=== PATIENT | female | born 2005 | race Hispanic/Latino ===

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

== ENCOUNTER 2023-11-12 10:24 | Day surgery (SDC) | payer BC, OTHER ==
[2023-11-11 10:01] LABS: Specific Gravity > 1.030 (1.005-1.030)
[2023-11-12] MEDS ORDERED: Ringers Lactate 1,000 ML IV ONE (10:39)
[2023-11-12] MEDS ORDERED: CEFAZOLIN SODIUM 1 GM/VIAL ONE (10:39)
[2023-11-12] MEDS ORDERED: BUPIVACAINE 0.25% PF 30 ML VIAL ONE (11:34)
[2023-11-12] MEDS ORDERED: MIDAZOLAM HCL 2 MG/2 ML INJ ONE (11:46)
[2023-11-12] MEDS ORDERED: LIDOCAINE 2% MPF 5 ML VIAL ONE (11:46)
[2023-11-12] MEDS ORDERED: FENTANYL CITR 100 MCG/2 ML ONE (11:46)
[2023-11-12] MEDS ORDERED: propofoL 200 MG/20 ML VIAL IV ONE (11:46)
[2023-11-12] MEDS ORDERED: ONDANSETRON 4 MG/2 ML VIAL ONE (11:46)
[2023-11-12] MEDS ORDERED: dexAMETHasone 10 MG/ML VIAL ONE (12:03)
--- NOTE | 2023-11-12 13:11 | P.OP ---
Preoperative diagnosis: RIGHT Dorsal Ganglion Cyst Postoperative diagnosis: RIGHT Dorsal Ganglion Cyst Primary procedure: Excision of RIGHT Dorsal Ganglion Cyst Anesthesia: GETA Estimated blood loss: <5cc Specimen: Ganglion Cyst Capsule Findings: ~ 1.5cm Scapholunate ganlgion cyst Complications: None Transferred to: Recovery Room Condition: Good
--- NOTE | 2023-11-12 14:41 | OP ---
Date of Procedure: 11/12/2023 Surgeon: Vargas Osei MD, Preoperative Diagnosis: Right dorsal ganglion cyst. Postoperative Diagnosis: Right dorsal ganglion cyst. Procedure Performed: Excision of right dorsal ganglion cyst. Anesthesia: General endotracheal. Estimated Blood Loss: Less than 5 cc. Specimen: Ganglion cyst capsule. Findings: Approximately 1.5 cm scapholunate ganglion cyst. Complication: None. Disposition: Patient was transferred to recovery room in good condition. Procedure In Detail: After informed was obtained, patient was brought to the operating room, prepped in the usual sterile fashion. After adequate anesthesia was achieved, I demarcated an area of the s kin where an obvious dorsal right ganglion cyst was noted along near the scapholunate region of the w rist. I made a linear incision down to subcutaneous tissues using a 15 blade. I dissected down to s ubcutaneous fat to expose the ganglion cyst. I then circumferentially used predominantly blunt disse ction using mosquito hemostats to dissect circumferentially around this ganglion cyst, which was appr oximately 1.5 cm in size. It extended all the way down to the scapholunate ligament region. I then placed a 3-0 Vicryl suture. After this was completely dissected free from the joint capsule on the n ronaldo of the cyst and ligated at this point, the cyst was intact until the ligation portion of the proc edure, which then allowed for spillage of the viscous fluid which was suctioned out at this point. T he capsule was sent off for pathologic examination. The area was copiously irrigated. No hemostatic measures required. No injury to the extensor compartment tendons or ligaments was performed as they were protected throughout. The area was copiously irrigated. Minimal hemostasis required at the le lashawn of the skin. I then performed a layered closure of the deeper planes using interrupted 4-0 Vicry l sutures. The deep dermal plane was then closed using same set 4-0 Vicryl sutures in an interrupted fashion. Skin was closed with a 4-0 Monocryl in a running fashion, Dermabond placed over top. The patient tolerated the procedure well without incident or complication. Transferred to PACU in good c ondition. All counts were correct at the end of the case. TK/MODL Voice ID: [id number] Report ID: [id number]
[2023-11-12 15:21] VITALS: BP 114/77; TEMP 97.8; O2SAT 99
--- NOTE | 2023-11-12 17:26 | EKG ---
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
== END 2023-11-12 15:10 | disposition home or self-care (01) ==
LOC: OR 10:24
PROVIDERS: ATTEND Surgery
PROC: 0JBG0ZZ Excision of Right Lower Arm Subcutaneous Tissue and Fascia, Open Approach (ICD-10-PCS; principal; 2023-11-12 12:00)
DX: M67.431 Ganglion, right wrist (principal)
CPT/HCPCS: 81025; 88304; 93005; J0690; J1100; J2001; J2250; J2405; J2704; J3010; J7120

== ENCOUNTER 2025-07-09 09:13 | Emergency (ER) | payer BC, OTHER ==
--- OUTSIDE RECORDS SUMMARY | 2025-07-09 09:20 | XMS REPORT | Continuity of Care Document ---
Author Name Unknown Address [address] [facility] [place] [address] [facility] [address] [facility] [place] [address] Care Team Providers Care Width Stripper Name Role Phone Volodymyr DIETZ, Trini Sandy Primary Care Physician ISADORA GOODWIN Attending Clinician Unavailab NEL Griffith Attending Clinician Unavailable REYMUNDO THAKKAR Attending Clinician Unavailable LAB47 Attending Clinician Unavailable UDAY KOHLER Attending Clinician Unavailable MD MIKE Attending Clinician UnavailTRINI Stoll Attending Clinician Unava ilable LAB90 Attending Clinician Unavailable SKYLER GRISSOM Attending Clinician Unavailable AUDREY LOPEZ Attending Clinician UnavailAUDREY Welch Attending Clinician UnavailCLARKE Chahal Attending Clinician Unavailable Trini Helm MD Attending Clinician [phone] Payers Payer Name Policy Type Policy Number Effective Date Expirati on Date Source BCBS 2 [id number] 2023 00:00:00 Problems Condition Name Condition Details Condition Category Status Onset Date Resolution Date Last Treatment Date Treating Clinician Comments Source Uses control Uses control Disease Active 07-02 00:00: 00 Shira Seybold - Externa l Encounter for screening for lipoid disorders Encounter for screening for lipoid disorders Disease Active 06-19 00:00: 00 Shira Fragoso - Externa l Hypothyroi dism Hypothyroi dism Disease Active 06-19 00:00: 00 Shira Schaeferold - Externa l Sore throat Sore throat Disease Active 06-19 00:00: 00 Shira Fragoso - Externa l No known active problems No known active problems Disease Shira Fragoso Allergies, Adverse Reactions, Alerts Allergy Name Allergy Type Status Severity Reaction(s) Onset Date Inactive Date Treating Clinician Comments Source NO KNOWN ALLERGIE S Drug Class Active [facility] Social History Social Habit Start Date Stop Date Quantity Comments Source Gender identity 2025-07-07 13:26:02 Identifies as female gender (finding) Shira Fragoso - External Sexual orientation 2025-07-07 13:26:02 Heterosexual (finding) Shira Fragoso - External ASSERTION Not Shira Fragoso - External Exposure to SARS-CoV-2 (event) Not sure Shira Booth chonyoung Alcoholic beverage intake 2025-07-07 00:00:00 2025-07-07 00:00:00 Lifetime non-drinker (finding) Shira Fragoso - External Tobacco use and exposure 2024-05-27 00:00:00 2024-05-27 00:00:00 Smokeless tobacco non-user Shira Fragoso - External Alcohol intake 2023-12-16 00:00:00 2023-12-16 00:00:00 Lifetime non-drinker (finding) Shira Fragoso - External History of Social function 2023-07-07 00:00:00 2023-07-07 00:00:00 Shira Fragoso - External Sex 2021-01-16 17:31:40 2021-01-16 17:31:40 Female (finding) Shira Fragoso - External Sex assigned at 2005 00:00:00 2005 00:00:00 Shira Fragoso - External Smoking Status Start Date Stop Date Source Never smoked tobacco Shira Fragoso - External Medications Ordered Medication Name Filled Medication Name Start Date Stop Date Current Medication? Ordering Clinician Indication Dosage Frequency Signature (SIG) Comments Components Source Sumatriptan Succinate 25 MG oral Tablet Sumatriptan Succinate 25 MG oral Tablet 9-18 00:00: 00 Yes [id number] 25mg Take 1 tablet (25 mg total) by mouth once as needed for migraine (May repeat in 2 hours if unresolved . Do not exceed 200 mg in 24 hours.). Shira gamble Norethin Cesar-Eth Estrad-FE (Lor FE 11/08) 1-20 MG-MCG oral Tablet Norethin Cesar-Eth Estrad-FE (Lor FE 11/08) 1-20 MG-MCG oral Tablet 8-07 00:00: 00 Yes 1{tbl} QD Take 1 tablet by mouth daily. Shira gamble Levothyroxi ne Sodium 25 MCG oral Tablet Levothyroxi ne Sodium 25 MCG oral Tablet 7-31 00:00: 00 Yes [id number] 25ug QD Take 1 tablet (25 mcg total) by mouth daily Please take 30 minutes before breakfast on empty stomach. Shira gamble Clindamycin Phos 1 % apply externally Gel Clindamycin Phos 1 % apply externally Gel 7-17 00:00: 00 05-30 00:00 :00 No Shira gamble Lor FE /20 1-20 MG-MCG oral Tablet Lor FE 20 1-20 MG-MCG oral Tablet 7-07 00:00: 00 05-26 00:00 :00 No 1{tbl} QD TAKE 1 TABLET BY MOUTH DAILY Shira gamble Escitalopra m Oxalate 10 MG oral Tablet Escitalopra m Oxalate 10 MG oral Tablet 4-11 00:00: 00 Yes [id number] 10mg QD Take 1 tablet (10 mg total) by mouth daily. Shira gamble Norethin Cesar-Eth Estrad-FE (Loestrin Fe 11/08) 1-20 MG-MCG oral Tablet 8-08 00:00: 00 Yes 1{tbl} QD Take 1 tablet by mouth daily. Shira gamble Escitalopra m Oxalate 10 MG oral Tablet 8 00:00: 00 Yes [id number] 10mg QD Take 1 tablet (10 mg total) by mouth daily. Shira gamble Escitalopra m Oxalate 10 MG oral Tablet 07-12 00:00: 00 Yes [id number] TAKE ONE TABLET BY MOUTH DAILY Shira gamble Levothyroxi ne Sodium 25 MCG oral Tablet 9 00:00: 00 Yes [id number] 25ug QD Take 1 tablet (25 mcg total) by mouth daily. Shira gamble Nitrofurant oin Monohyd Macro 100 MG oral Capsule 06-20 00:00: 00 11-03 00:00 :00 No [id number] 100mg Take 1 capsule (100 mg total) by mouth 2 times daily. Shira gamble Azithromyci n 250 MG oral Tablet 06-19 00:00: 00 06-25 04:59 :00 No [id number] Take 2 tablets by mouth on day 1 then 1 tablet by mouth daily for 4 days thereafter . Please take with food.. Shira gamble Levothyroxi ne Sodium 25 MCG oral Tablet 8 00:00: 00 Yes 25ug Take 1 tablet (25 mcg total) by mouth daily Shira gamble Escitalopra m Oxalate 10 MG oral Tablet 3-13 00:00: 00 Yes [id number] TAKE ONE TABLET BY MOUTH DAILY Shira gamble Amoxicillin -Pot Clavulanate 500-125 MG oral Tablet 5-02 00:00: 00 Yes [id number] 1{tbl} Take 1 tablet by mouth 3 times daily Shira Fragoso Levothyroxi ne Sodium 25 MCG oral Tablet 4-17 00:00: 00 02-18 00:00 :00 No Shira Fragoso Levothyroxi ne Sodium 25 MCG oral Capsule 2020-10 2-30 00:00: 00 Yes 25ug Take 1 capsule (25 mcg total) by mouth daily Shira Fragoso Levothyroxi ne Sodium 25 MCG oral Capsule 2020-10 13:51: 19 Yes 25ug Take 25 mcg by mouth daily Shira Fragoso Escitalopra m Oxalate 10 MG oral Tablet 2020-10 00:00: 00 Yes [id number] 10mg Take 1 tablet (10 mg total) by mouth daily Shira Fragoso Levothyroxi ne Sodium 25 MCG oral Capsule 2020-10 13:24: 33 Yes 25ug Take 25 mcg by mouth daily Shira Fragoso Escitalopra m Oxalate 5 MG oral Tablet 2020-10 00:00: 00 09-06 00:00 :00 No [id number] 5mg Take 1 tablet (5 mg total) by mouth daily Shira Fragoso Levothyroxi ne Sodium 25 MCG oral Capsule 2020-10 08:59: 02 Yes 25ug Take 25 mcg by mouth daily Shira Fragoso Escitalopra m Oxalate 5 MG oral Tablet 2020-10 00:00: 00 Yes [id number] 5mg Take 1 tablet (5 mg total) by mouth daily Shira Fragoso Immunizations Ordered Immunization Name Filled Immunization Name Date Status Comments Source AFLURIA TRIVALENT MDV AFLURIA TRIVALENT MDV 2024-07-02 00:00:00 Completed Shira Evangelista External HPV 9 (Human Papillomavirus) 2020-05-22 00:00:00 Completed Shira Fragoso Meningococcal Vaccine- Conjugate(Menveo) 2020-05-22 00:00:00 Completed Shira Fragoso Bexsero (Meningococcal Group B) 2020-05-22 00:00:00 Completed Shira Fragoso HPV 9 (Human Papillomavirus) 2020-05-22 00:00:00 Completed Shira Fragoso Meningococcal Vaccine- Conjugate(Menveo) 2020-05-22 00:00:00 Completed Shira Fragoso Bexsero (Meningococcal Group B) 2020-05-22 00:00:00 Completed Shira Fragoso HPV 9 (Human Papillomavirus) 2020-05-22 00:00:00 Completed Shira Fragoso - External Meningococcal Vaccine- Conjugate(Menveo) 2020-05-22 00:00:00 Completed Shira Fragoso - External Bexsero (Meningococcal Group B) 2020-05-22 00:00:00 Completed Shira Fragoso - External Meningococcal Acwy, Unspecified 2020-05-22 00:00:00 Completed Shira Schaeferold - External HPV 9 (Human Papillomavirus) 2020-05-22 00:00:00 Completed Shira Schaeferold Meningococcal Vaccine- Conjugate(Menveo) 2020-05-22 00:00:00 Completed Shira Fragoso Bexsero (Meningococcal Group B) 2020-05-22 00:00:00 Completed Shira Fragoso HPV 9 (Human Papillomavirus) HPV 9 (Human Papillomavirus) 2020-05-22 00:00:00 Completed Shira Fragoso - External Meningococcal Vaccine- Conjugate(Menveo) Meningococcal Vaccine- Conjugate(Menveo) 2020-05-22 00:00:00 Completed Shira Fragoso - External Bexsero (Meningococcal Group B) Bexsero (Meningococcal Group B) 2020-05-22 00:00:00 Completed Shira Fragoso - External Meningococcal Acwy, Unspecified Meningococcal Acwy, Unspecified 2020-05-22 00:00:00 Completed Shira Fragoso - External HPV 9 (Human Papillomavirus) 2020-05-22 00:00:00 Completed Shira Fragoso Meningococcal Vaccine- Conjugate(Menveo) 2020-05-22 00:00:00 Completed Shira Fragoso Bexsero (Meningococcal Group B) 2020-05-22 00:00:00 Completed Shira Fragoso HPV 9 (Human Papillomavirus) 2018-12-29 00:00:00 Completed Shira Fragoso HPV 9 (Human Papillomavirus) 2018-12-29 00:00:00 Completed Shira Fragoso HPV 9 (Human Papillomavirus) 2018-12-29 00:00:00 Completed Shira Fragoso - External HPV 9 (Human Papillomavirus) 2018-12-29 00:00:00 Completed Shira Fragoso HPV 9 (Human Papillomavirus) HPV 9 (Human Papillomavirus) 2018-12-29 00:00:00 Completed Shira Boothybold - External HPV 9 (Human Papillomavirus) 2018-12-29 00:00:00 Completed Shira Fragoso HPV 9 (Human Papillomavirus) 2016-05-29 00:00:00 Completed Shira Fragoso Meningococcal Vaccine- Conjugate(Menactra) 2016-05-29 00:00:00 Completed Shira Schaeferold Tdap- (Boostrix, Adacel) 2016-05-29 00:00:00 Completed Shira Schaeferold HPV 9 (Human Papillomavirus) 2016-05-29 00:00:00 Completed Shira Boothybold Meningococcal Vaccine- Conjugate(Menactra) 2016-05-29 00:00:00 Completed Shira Boothybold Tdap- (Boostrix, Adacel) 2016-05-29 00:00:00 Completed Shira Fragoso HPV 9 (Human Papillomavirus) 2016-05-29 00:00:00 Completed Shira Boothybold Meningococcal Vaccine- Conjugate(Menactra) 2016-05-29 00:00:00 Completed Shira Boothybold Tdap- (Boostrix, Adacel) 2016-05-29 00:00:00 Completed Shira Fragoso HPV 9 (Human Papillomavirus) 2016-05-29 00:00:00 Completed Shria Fragoso - External Meningococcal Vaccine- Conjugate(Menactra) 2016-05-29 00:00:00 Completed Shira Fragoso - External Tdap- (Boostrix, Adacel) 2016-05-29 00:00:00 Completed Shira Boothybyoung - External HPV 9 (Human Papillomavirus) 2016-05-29 00:00:00 Completed Shira Boothybold - External Meningococcal Vaccine- Conjugate(Menactra) 2016-05-29 00:00:00 Completed Shira Boothybold - External Tdap- (Boostrix, Adacel) 2016-05-29 00:00:00 Completed Shira Fragoso - External HPV 9 (Human Papillomavirus) 2016-05-29 00:00:00 Completed Shira Seybold Meningococcal Vaccine- Conjugate(Menactra) 2016-05-29 00:00:00 Completed Shira Boothybold Tdap- (Boostrix, Adacel) 2016-05-29 00:00:00 Completed Shira Fragoso HPV 9 (Human Papillomavirus) HPV 9 (Human Papillomavirus) 2016-05-29 00:00:00 Completed Shira Seybold - External Meningococcal Vaccine- Conjugate(Menactra) Meningococcal Vaccine- Conjugate(Menactra) 2016-05-29 00:00:00 Completed Shira Boothybold - External Tdap- (Boostrix, Adacel) Tdap- (Boostrix, Adacel) 2016-05-29 00:00:00 Completed Shira Fragoso - External HPV 9 (Human Papillomavirus) HPV 9 (Human Papillomavirus) 2016-05-29 00:00:00 Completed Shira Fragoso - External Meningococcal Vaccine- Conjugate(Menactra) Meningococcal Vaccine- Conjugate(Menactra) 2016-05-29 00:00:00 Completed Shira Evangelista External Tdap- (Boostrix, Adacel) Tdap- (Boostrix, Adacel) 2016-05-29 00:00:00 Completed Shira Fragoso - External HEPATITIS A- PEDI/ADOL 2013-05-14 00:00:00 Completed Shira Fragoso Varicella Vaccine 2013-05-14 00:00:00 Completed Shira Fragoso HEPATITIS A- PEDI/ADOL 2013-05-14 00:00:00 Completed Shira Fragoso HEPATITIS A- PEDI/ADOL 2013-05-14 00:00:00 Completed Shira Fragoso Varicella Vaccine 2013-05-14 00:00:00 Completed Shira Fragoso HEPATITIS A- PEDI/ADOL 2013-05-14 00:00:00 Completed Shira Fragoso - External Varicella Vaccine 2013-05-14 00:00:00 Completed Shira Fragoso - External Varicella Vaccine 2013-05-14 00:00:00 Completed Shira Fragoso HEPATITIS A- PEDI/ADOL HEPATITIS A- PEDI/ADOL 2013-05-14 00:00:00 Completed Shira Fragoso - External Varicella Vaccine Varicella Vaccine 2013-05-14 00:00:00 Completed Shira Fragoso - External HEPATITIS A- PEDI/ADOL 2013-05-14 00:00:00 Completed Shira Fragoso Varicella Vaccine 2013-05-14 00:00:00 Completed Shira Fragoso HEPATITIS A- PEDI/ADOL 2008-09-08 00:00:00 Completed Shira Fragoso HEPATITIS A- PEDI/ADOL 2008-09-08 00:00:00 Completed Shira Fragoso HEPATITIS A- PEDI/ADOL 2008-09-08 00:00:00 Completed Shira Fragoso HEPATITIS A- PEDI/ADOL 2008-09-08 00:00:00 Completed Shira Fragoso - External HEPATITIS A- PEDI/ADOL HEPATITIS A- PEDI/ADOL 2008-09-08 00:00:00 Completed Shira Schaeferold - External HEPATITIS A- PEDI/ADOL 2008-09-08 00:00:00 Completed Shira Fragoso DTaP Unspecified 2007-12-15 00:00:00 Completed Shira Fragoso HEPATITIS A- PEDI/ADOL 2007-12-15 00:00:00 Completed Shira Fragoso MMR- Measles, Mumps, Rubella 2007-12-15 00:00:00 Completed Shira Fragoso IPV- Inactivated Polio Vaccine 2007-12-15 00:00:00 Completed Shira Fragoso Varicella Vaccine 2007-12-15 00:00:00 Completed Shira Fragoso DTaP Unspecified 2007-12-15 00:00:00 Completed Shira Fragoso DTaP Unspecified 2007-12-15 00:00:00 Completed Shira Fragoso HEPATITIS A- PEDI/ADOL 2007-12-15 00:00:00 Completed Shira Fragoso MMR- Measles, Mumps, Rubella 2007-12-15 00:00:00 Completed Shira Fragoso IPV- Inactivated Polio Vaccine 2007-12-15 00:00:00 Completed Shira Fragoso Varicella Vaccine 2007-12-15 00:00:00 Completed Shira Fragoso HEPATITIS A- PEDI/ADOL 2007-12-15 00:00:00 Completed Shira Fragoso DTaP Unspecified 2007-12-15 00:00:00 Completed Shira Fragoso - External HEPATITIS A- PEDI/ADOL 2007-12-15 00:00:00 Completed hSira Fragoso - External MMR- Measles, Mumps, Rubella 2007-12-15 00:00:00 Completed Shira Fragoso - External IPV- Inactivated Polio Vaccine 2007-12-15 00:00:00 Completed Shira Fragoso - External Varicella Vaccine 2007-12-15 00:00:00 Completed Shira Fragoso - External MMR- Measles, Mumps, Rubella 2007-12-15 00:00:00 Completed Shira Fragoso IPV- Inactivated Polio Vaccine 2007-12-15 00:00:00 Completed Shira Boothybold Varicella Vaccine 2007-12-15 00:00:00 Completed Shira Fragoso DTaP Unspecified DTaP Unspecified 2007-12-15 00:00:00 Completed Shira Fragoso - External HEPATITIS A- PEDI/ADOL HEPATITIS A- PEDI/ADOL 2007-12-15 00:00:00 Completed Shira Fragoso - External MMR- Measles, Mumps, Rubella MMR- Measles, Mumps, Rubella 2007-12-15 00:00:00 Completed Shira Fragoso - External IPV- Inactivated Polio Vaccine IPV- Inactivated Polio Vaccine 2007-12-15 00:00:00 Completed Shira Schaeferold - External Varicella Vaccine Varicella Vaccine 2007-12-15 00:00:00 Completed Shira Fragoso - External DTaP Unspecified 2007-12-15 00:00:00 Completed Shira Fragoso HEPATITIS A- PEDI/ADOL 2007-12-15 00:00:00 Completed Shira Fragoso MMR- Measles, Mumps, Rubella 2007-12-15 00:00:00 Completed Shira Fragoso IPV- Inactivated Polio Vaccine 2007-12-15 00:00:00 Completed Shira Schaeferold Varicella Vaccine 2007-12-15 00:00:00 Completed Shira Fragoso DTaP Unspecified 2005-04-17 00:00:00 Completed Shira Fragoso HIB- Haemophilus Influenzae Type B 2005-04-17 00:00:00 Completed Shira Fragoso MMR- Measles, Mumps, Rubella 2005-04-17 00:00:00 Completed Shira Fragoso Pneumococcal Vaccine, Conjugate 7 2005-04-17 00:00:00 Completed Shira Fragoso DTaP Unspecified 2005-04-17 00:00:00 Completed Shira Schaeferold DTaP Unspecified 2005-04-17 00:00:00 Completed Shira Fragoso HIB- Haemophilus Influenzae Type B 2005-04-17 00:00:00 Completed Shira Fragoso MMR- Measles, Mumps, Rubella 2005-04-17 00:00:00 Completed Shira Fragoso Pneumococcal Vaccine, Conjugate 7 2005-04-17 00:00:00 Completed Shira Fragoso DTaP Unspecified 2005-04-17 00:00:00 Completed Shira Fragoso - External HIB- Haemophilus Influenzae Type B 2005-04-17 00:00:00 Completed Shira Schaeferold - External MMR- Measles, Mumps, Rubella 2005-04-17 00:00:00 Completed Shira Schaeferold - External Pneumococcal Vaccine, Conjugate 7 2005-04-17 00:00:00 Completed Shira Schaeferold - External HIB- Haemophilus Influenzae Type B 2005-04-17 00:00:00 Completed Shira Fragoso MMR- Measles, Mumps, Rubella 2005-04-17 00:00:00 Completed Shira Boothybyoung Pneumococcal Vaccine, Conjugate 7 2005-04-17 00:00:00 Completed Shira Fragoso DTaP Unspecified DTaP Unspecified 2005-04-17 00:00:00 Completed Shira Fragoso - External HIB- Haemophilus Influenzae Type B HIB- Haemophilus Influenzae Type B 2005-04-17 00:00:00 Completed Shira Fragoso - External MMR- Measles, Mumps, Rubella MMR- Measles, Mumps, Rubella 2005-04-17 00:00:00 Completed Shira Fragoso - External Pneumococcal Vaccine, Conjugate 7 Pneumococcal Vaccine, Conjugate 7 2005-04-17 00:00:00 Completed Shira Fragoso - External DTaP Unspecified 2005-04-17 00:00:00 Completed Shira Fragoso HIB- Haemophilus Influenzae Type B 2005-04-17 00:00:00 Completed Shira Fragoso MMR- Measles, Mumps, Rubella 2005-04-17 00:00:00 Completed Shira Fragoso Pneumococcal Vaccine, Conjugate 7 2005-04-17 00:00:00 Completed Shira Fragoso Varicella Vaccine 2004-12-05 00:00:00 Completed Shira Fragoso Hepatitis B, Adolescent Or Pediatric 2004-12-05 00:00:00 Completed Shira Boothybold Pneumococcal Vaccine, Conjugate 7 2004-12-05 00:00:00 Completed Shira Fragoso IPV- Inactivated Polio Vaccine 2004-12-05 00:00:00 Completed Shira Boothybold Varicella Vaccine 2004-12-05 00:00:00 Completed Shira Schaeferold Hepatitis B, Adolescent Or Pediatric 2004-12-05 00:00:00 Completed Shira Boothybold Pneumococcal Vaccine, Conjugate 7 2004-12-05 00:00:00 Completed Shira Fragoso IPV- Inactivated Polio Vaccine 2004-12-05 00:00:00 Completed Shira Boothybold Varicella Vaccine 2004-12-05 00:00:00 Completed Shira Fragoso Hepatitis B, Adolescent Or Pediatric 2004-12-05 00:00:00 Completed Shira Schaeferold Hepatitis B, Adolescent Or Pediatric 2004-12-05 00:00:00 Completed Shira Schaeferold - External Pneumococcal Vaccine, Conjugate 7 2004-12-05 00:00:00 Completed Shira Schaeferold - External IPV- Inactivated Polio Vaccine 2004-12-05 00:00:00 Completed Shira Boothybold - External Varicella Vaccine 2004-12-05 00:00:00 Completed Shira Schaeferold - External Pneumococcal Vaccine, Conjugate 7 2004-12-05 00:00:00 Completed Shira Fragoso IPV- Inactivated Polio Vaccine 2004-12-05 00:00:00 Completed Shira Seybold Varicella Vaccine 2004-12-05 00:00:00 Completed Shira Fragoso Hepatitis B, Adolescent Or Pediatric Hepatitis B, Adolescent Or Pediatric 2004-12-05 00:00:00 Completed Shira Fragoso - External Pneumococcal Vaccine, Conjugate 7 Pneumococcal Vaccine, Conjugate 7 2004-12-05 00:00:00 Completed Shira Fragoso - External IPV- Inactivated Polio Vaccine IPV- Inactivated Polio Vaccine 2004-12-05 00:00:00 Completed Shira Schaeferold - External Varicella Vaccine Varicella Vaccine 2004-12-05 00:00:00 Completed Shira Schaeferold - External Hepatitis B, Adolescent Or Pediatric 2004-12-05 00:00:00 Completed Shira Boothybold Pneumococcal Vaccine, Conjugate 7 2004-12-05 00:00:00 Completed Shira Fragoso IPV- Inactivated Polio Vaccine 2004-12-05 00:00:00 Completed Shira Schaeferold DTaP Unspecified 2004-06-05 00:00:00 Completed Shira Schaeferold HIB- Haemophilus Influenzae Type B 2004-06-05 00:00:00 Completed Shira Boothybold DTaP Unspecified 2004-06-05 00:00:00 Completed Shira ybold Pneumococcal Vaccine, Conjugate 7 2004-06-05 00:00:00 Completed Shira Schaeferold DTaP Unspecified 2004-06-05 00:00:00 Completed Shira Schaeferold HIB- Haemophilus Influenzae Type B 2004-06-05 00:00:00 Completed Shira Seybold Pneumococcal Vaccine, Conjugate 7 2004-06-05 00:00:00 Completed Shira Boothybold DTaP Unspecified 2004-06-05 00:00:00 Completed Shira Schaeferold - External HIB- Haemophilus Influenzae Type B 2004-06-05 00:00:00 Completed Shira Seybold HIB- Haemophilus Influenzae Type B 2004-06-05 00:00:00 Completed Shira Schaeferold - External Pneumococcal Vaccine, Conjugate 7 2004-06-05 00:00:00 Completed Shira Boothybold - External Pneumococcal Vaccine, Conjugate 7 2004-06-05 00:00:00 Completed Shira Schaeferold DTaP Unspecified DTaP Unspecified 2004-06-05 00:00:00 Completed Shira Schaeferold - External HIB- Haemophilus Influenzae Type B HIB- Haemophilus Influenzae Type B 2004-06-05 00:00:00 Completed Shira Schaeferold - External Pneumococcal Vaccine, Conjugate 7 Pneumococcal Vaccine, Conjugate 7 2004-06-05 00:00:00 Completed Shira Schaeferold - External DTaP Unspecified 2004-06-05 00:00:00 Completed Shira Seybold HIB- Haemophilus Influenzae Type B 2004-06-05 00:00:00 Completed Shira Seybold Pneumococcal Vaccine, Conjugate 7 2004-06-05 00:00:00 Completed Shira Boothybold DTaP Unspecified 2004-04-06 00:00:00 Completed Shira Seybold HIB- Haemophilus Influenzae Type B 2004-04-06 00:00:00 Completed Shira Boothybold Pneumococcal Vaccine, Conjugate 7 2004-04-06 00:00:00 Completed Shira Boothybold IPV- Inactivated Polio Vaccine 2004-04-06 00:00:00 Completed Shira Seybold DTaP Unspecified 2004-04-06 00:00:00 Completed Shira Seybold DTaP Unspecified 2004-04-06 00:00:00 Completed Shira Seybold HIB- Haemophilus Influenzae Type B 2004-04-06 00:00:00 Completed Shira Seybold Pneumococcal Vaccine, Conjugate 7 2004-04-06 00:00:00 Completed Shira Seybold IPV- Inactivated Polio Vaccine 2004-04-06 00:00:00 Completed Shira Seybold HIB- Haemophilus Influenzae Type B 2004-04-06 00:00:00 Completed Shira Seybold DTaP Unspecified 2004-04-06 00:00:00 Completed Shira Schaeferold - External HIB- Haemophilus Influenzae Type B 2004-04-06 00:00:00 Completed Shira Fragoso - External Pneumococcal Vaccine, Conjugate 7 2004-04-06 00:00:00 Completed Shira Schaeferold - External IPV- Inactivated Polio Vaccine 2004-04-06 00:00:00 Completed Shira Fragoso - External Pneumococcal Vaccine, Conjugate 7 2004-04-06 00:00:00 Completed Shira Boothybyoung IPV- Inactivated Polio Vaccine 2004-04-06 00:00:00 Completed Shira Fragoso DTaP Unspecified DTaP Unspecified 2004-04-06 00:00:00 Completed Shira Fragoso - External HIB- Haemophilus Influenzae Type B HIB- Haemophilus Influenzae Type B 2004-04-06 00:00:00 Completed Shira Fragoso - External Pneumococcal Vaccine, Conjugate 7 Pneumococcal Vaccine, Conjugate 7 2004-04-06 00:00:00 Completed Shira Fragoso - External IPV- Inactivated Polio Vaccine IPV- Inactivated Polio Vaccine 2004-04-06 00:00:00 Completed Shira Fragoso - External DTaP Unspecified 2004-04-06 00:00:00 Completed Shira Fragoso HIB- Haemophilus Influenzae Type B 2004-04-06 00:00:00 Completed Shira Fragoso Pneumococcal Vaccine, Conjugate 7 2004-04-06 00:00:00 Completed Shira Fragoso IPV- Inactivated Polio Vaccine 2004-04-06 00:00:00 Completed Shira Fragoso DTaP Unspecified 2004-01-04 00:00:00 Completed Shira Fragoso Hepatitis B, Adolescent Or Pediatric 2004-01-04 00:00:00 Completed Shira Fragoso HIB- Haemophilus Influenzae Type B 2004-01-04 00:00:00 Completed Shira Fragoso IPV- Inactivated Polio Vaccine 2004-01-04 00:00:00 Completed Shira Fragoso DTaP Unspecified 2004-01-04 00:00:00 Completed Shira Boothybold DTaP Unspecified 2004-01-04 00:00:00 Completed Shira Fragoso Hepatitis B, Adolescent Or Pediatric 2004-01-04 00:00:00 Completed Shira Schaeferold HIB- Haemophilus Influenzae Type B 2004-01-04 00:00:00 Completed Shira Fragoso IPV- Inactivated Polio Vaccine 2004-01-04 00:00:00 Completed Shira Fragoso Hepatitis B, Adolescent Or Pediatric 2004-01-04 00:00:00 Completed Shira Fragoso DTaP Unspecified 2004-01-04 00:00:00 Completed Shira Fragoso - External Hepatitis B, Adolescent Or Pediatric 2004-01-04 00:00:00 Completed Shira Fragoso - External HIB- Haemophilus Influenzae Type B 2004-01-04 00:00:00 Completed Shira Fragoso - External HIB- Haemophilus Influenzae Type B 2004-01-04 00:00:00 Completed Shira Fragoso IPV- Inactivated Polio Vaccine 2004-01-04 00:00:00 Completed Shira Fragoso - External IPV- Inactivated Polio Vaccine 2004-01-04 00:00:00 Completed Shira Fragoso DTaP Unspecified DTaP Unspecified 2004-01-04 00:00:00 Completed Shira Fragoso - External Hepatitis B, Adolescent Or Pediatric Hepatitis B, Adolescent Or Pediatric 2004-01-04 00:00:00 Completed Shira Fragoso - External HIB- Haemophilus Influenzae Type B HIB- Haemophilus Influenzae Type B 2004-01-04 00:00:00 Completed Shira Fragoso - External IPV- Inactivated Polio Vaccine IPV- Inactivated Polio Vaccine 2004-01-04 00:00:00 Completed Shira Fragoso - External DTaP Unspecified 2004-01-04 00:00:00 Completed Shira Fragoso Hepatitis B, Adolescent Or Pediatric 2004-01-04 00:00:00 Completed Shira Fragoso HIB- Haemophilus Influenzae Type B 2004-01-04 00:00:00 Completed Shira Fragoso IPV- Inactivated Polio Vaccine 2004-01-04 00:00:00 Completed Shira Fragoso Hepatitis B, Adolescent Or Pediatric 2003 00:00:00 Completed Shira Fragoso Hepatitis B, Adolescent Or Pediatric 2003 00:00:00 Completed Shira Fragoso Hepatitis B, Adolescent Or Pediatric 2003 00:00:00 Completed Shira Fragoso Hepatitis B, Adolescent Or Pediatric 2003 00:00:00 Completed Shira Fragoso - External Hepatitis B, Adolescent Or Pediatric Hepatitis B, Adolescent Or Pediatric 2003 00:00:00 [facility]atitis B, Adolescent Or Pediatric 2003 00:00:00 [facility] Unspecified Unknown Com[facility] HEPATITIS A- PEDI/ADOL Unknown Com[facility] Hepatitis B, Adolescent Or Pediatric Unknown Com[facility] HIB- Haemophilus Influenzae Type B Unknown Completed Shira Varela bold - External HPV 9 (Human Papillomavirus) Unknown Completed Shira Shannon [facility] - External Meningococcal Vaccine- Conjugate(Menveo) Unknown Completed Shira Varela bold - External Meningococcal Vaccine- Conjugate(Menactra) Unknown Completed [facility]bold - External Bexsero (Meningococcal Group B) Unknown Com[facility] MMR- Measles, Mumps, Rubella Unknown Completed [facility] - External Pneumococcal Vaccine, Conjugate 7 Unknown Completed [facility] - External IPV- Inactivated Polio Vaccine Unknown Com[facility] Tdap- (Boostrix, Adacel) Unknown Completed Shira [facility] - External Varicella Vaccine Unknown Completed bennettnolberto [facility] - External HPV 9 (Human Papillomavirus) Unknown Completed Shirakip Shannon [facility] - External Meningococcal Vaccine- Conjugate(Menactra) [facility] Tdap- (Boostrix, Adacel) Unknown Com[facility] External Meningococcal Acwy, Unspecified Unknown Completed Shira [facility] - External DTaP Unspecified Unknown Completed Bartolo Fragoso - External HEPATITIS A- PEDI/ADOL Unknown [facility] Hepatitis B, Adolescent Or Pediatric Unknown Completed Shira [facility] - External HIB- Haemophilus Influenzae Type B Unknown Completed Shira vargas - External HPV 9 (Human Papillomavirus) Unknown Completed Shira [facility]eferger [facility] - External Meningococcal Vaccine- Conjugate(Menveo) Unknown Completed Shira Varela bold - External Meningococcal Vaccine- Conjugate(Menactra) Unknown Completed [facility]bold - External Bexsero (Meningococcal Group B) Unknown Completed Shira [facility] - External MMR- Measles, Mumps, Rubella Unknown Completed Shira y[facility] - External Pneumococcal Vaccine, Conjugate 7 Unknown Completed Shira Seybold - External IPV- Inactivated Polio [facility]ine Unknown [facility]- (Boostrix, Adacel) [facility]ine [facility] HPV 9 (Human Papillomavirus) Unknown Completed [facility] ld - External Meningococcal Vaccine- Conjugate(Menactra) Unknown Completed [facility]bold - External Tdap- (Boostrix, Adacel) Unknown [facility] Meningococcal Acwy, Unspecified Unknown [facility] D[facility] Unspecified Unknown Completed [facility] Seybold - External HEPATITIS A- PEDI/ADOL Unknown [facility] Hepatitis B, Adolescent Or Pediatric Unknown [facility] HIB- Haemophilus Influenzae Type B Unknown Completed [facility] bold - External HPV 9 (Human Papillomavirus) Unknown Completed [facility] ld - External HPV 9 (Human Papillomavirus) Unknown Completed [facility] ld - External Meningococcal Vaccine- Conjugate(Menveo) Unknown Completed [facility] bold - External Meningococcal Vaccine- Conjugate(Menactra) Unknown Completed [facility]bold - External Bexsero (Meningococcal Group B) Unknown [facility] M[facility]- Measles, Mumps, Rubella Unknown Completed [facility] - External Pneumococcal Vaccine, Conjugate 7 Unknown [facility]V- Inactivated Polio Vaccine Unknown Completed [facility] - External Tdap- (Boostrix, Adacel) Unknown Completed [facility] - External Varicella Vaccine Unknown Completed [facility] Seold - External Meningococcal Acwy, Unspecified Unknown [facility] Unspecified [facility]- [facility]I/ADOL [facility] Hepatitis B, Adolescent Or Pediatric Unknown [facility] HIB- Haemophilus Influenzae Type B Unknown [facility] - External HPV 9 (Human Papillomavirus) Unknown Completed [facility] ld - External HPV 9 (Human Papillomavirus) Unknown Completed [facility] ld - External Meningococcal Vaccine- Conjugate(Menveo) Unknown Completed [facility] bold - External Meningococcal Vaccine- Conjugate(Menactra) Unknown Completed [facility] eybold - External Bexsero (Meningococcal Group B) Unknown Completed Shira Fragoso - External MMR- Measles, Mumps, Rubella Unknown Completed Shira Fragoso - External Pneumococcal Vaccine, Conjugate 7 Unknown Completed Shira Fragoso - External IPV- Inactivated Polio Vaccine Unknown Completed Shira Fragoso - External Tdap- (Boostrix, Adacel) Unknown Completed Shira Fragoso - External Varicella Vaccine Unknown Completed Vinay guerra ybold - External Meningococcal Acwy, Unspecified Unknown Completed Shira Fragoso - External AFLURIA TRIVALENT MDV Unknown Completed Shira Schaeferold - External Vital Signs Vital Name Observation Time Observation Value Comments S ource Systolic blood pressure 2025-05-30 10:33:00 112 mm[Hg] Shira Schaefero ld - External Diastolic blood pressure 2025-05-30 10:33:00 77 mm[Hg] Shira Schaefero ld - External Heart rate 2025-05-30 10:33:00 58 /min Lyle tam Seybold - External Body temperature 2025-05-30 10:33:00 35.83 Kamryn Shira [facility]bold - External Respiratory rate 2025-05-30 10:33:00 19 /min Shira Schaeferold - External Body height 2025-05-30 10:33:00 154.9 cm Evie arvizu Seybold - External Body weight 2025-05-30 10:33:00 66.225 kg Evie arvizu Seybold - External BMI 2025-05-30 10:33:00 27.59 kg/m2 Evie nolberto Seybold - External Oxygen saturation in Arterial blood by Pulse oximetry 2025-05-30 10:33:00 100 /min Shira Schaefero ld - External Systolic blood pressure 2025-05-26 09:39:00 119 mm[Hg] Shira Schaefero ld - External Diastolic blood pressure 2025-05-26 09:39:00 81 mm[Hg] Shira Schaefero ld - External Heart rate 2025-05-26 09:39:00 65 /min Kelse y Seybold - External Respiratory rate 2025-05-26 09:39:00 18 /min Shira Seybold - External Body height 2025-05-26 09:39:00 154.9 cm Evie ey Seybold - External Systolic blood pressure 2024-07-02 16:25:00 108 mm[Hg] Shira Seybo ld - External Diastolic blood pressure 2024-07-02 16:25:00 64 mm[Hg] Shira Seybo ld - External Heart rate 2024-07-02 16:25:00 68 /min Kelse y Seybold - External Body temperature 2024-07-02 16:25:00 36.89 Kamryn Shira Seybold - External Respiratory rate 2024-07-02 16:25:00 18 /min Shira Seybold - External Body height 2024-07-02 16:25:00 154.9 cm Evie ey Seybold - External Body weight 2024-07-02 16:25:00 61.689 kg Evie ey Seybold - External BMI 2024-07-02 16:25:00 25.70 kg/m2 Evie ey Seybold - External Oxygen saturation in Arterial blood by Pulse oximetry 2024-07-02 16:25:00 98 /min Shira Seybo ld - External Systolic blood pressure 2024-05-27 19:49:00 117 mm[Hg] Shira Seybo ld - External Diastolic blood pressure 2024-05-27 19:49:00 73 mm[Hg] Shira Seybo ld - External Heart rate 2024-05-27 19:49:00 60 /min Kelse y Seybold - External Respiratory rate 2024-05-27 19:49:00 16 /min Shira Seybold - External Body height 2024-05-27 19:49:00 154.9 cm Evie ey Seybold - External Body weight 2024-05-27 19:49:00 63.05 kg Evie ey Seybold - External BMI 2024-05-27 19:49:00 26.26 kg/m2 Evie ey Seybold - External Systolic blood pressure 2023-12-16 19:57:00 98 mm[Hg] Shira Seybo ld - External Diastolic blood pressure 2023-12-16 19:57:00 64 mm[Hg] Shira Seybo ld - External Heart rate 2023-12-16 19:57:00 98 /min Kelse y Seybold - External Body temperature 2023-12-16 19:57:00 36.67 Kamryn Shira Seybold - External Respiratory rate 2023-12-16 19:57:00 16 /min Shira Seybold - External Body height 2023-12-16 19:57:00 154.9 cm Evie ey Seybold - External Body weight 2023-12-16 19:57:00 60.328 kg Evie ey Seybold - External BMI 2023-12-16 19:57:00 25.13 kg/m2 Evie ey Seybold - External Oxygen saturation in Arterial blood by Pulse oximetry 2023-12-16 19:57:00 99 /min Shira Seybo ld - External Systolic blood pressure 2023-11-03 19:28:00 112 mm[Hg] Shira Seybo ld - External Diastolic blood pressure 2023-11-03 19:28:00 66 mm[Hg] Shira Seybo ld - External Heart rate 2023-11-03 19:28:00 64 /min Kelse y Seybold - External Body temperature 2023-11-03 19:28:00 36.5 Kamryn Shira Seybold - External Respiratory rate 2023-11-03 19:28:00 14 /min Shira Seybold - External Body height 2023-11-03 19:28:00 154.9 cm Evie ey Seybold - External Body weight 2023-11-03 19:28:00 59.875 kg Evie ey Seybold - External BMI 2023-11-03 19:28:00 24.94 kg/m2 Evie ey Seybold - External Systolic blood pressure 2023-06-19 12:50:00 100 mm[Hg] Shira Seybo ld - External Diastolic blood pressure 2023-06-19 12:50:00 58 mm[Hg] Shira Seybo ld - External Heart rate 2023-06-19 12:50:00 60 /min Kelse y Seybold - External Body temperature 2023-06-19 12:50:00 36.61 Kamryn Shira Seybold - External Respiratory rate 2023-06-19 12:50:00 20 /min Shira Seybold - External Body height 2023-06-19 12:50:00 154.9 cm Evie ey Seybold - External Body weight 2023-06-19 12:50:00 60.601 kg Evie ey Seybold - External BMI 2023-06-19 12:50:00 25.24 kg/m2 Evie ey Seybold - External Oxygen saturation in Arterial blood by Pulse oximetry 2023-06-19 12:50:00 97 /min Shira Schaefero ld - External Systolic blood pressure 2022-02-18 15:31:00 114 mm[Hg] Shira Seybo ld Diastolic blood pressure 2022-02-18 15:31:00 70 mm[Hg] Shira Seybo ld Heart rate 2022-02-18 15:31:00 67 /min Kelse y Seybold Body temperature 2022-02-18 15:31:00 36.28 Kamryn Shira Seybold Respiratory rate 2022-02-18 15:31:00 14 /min Shira Seybold Body height 2022-02-18 15:31:00 152.4 cm Evie ey Seybold Body weight 2022-02-18 15:31:00 53.524 kg Evie ey Seybold BMI 2022-02-18 15:31:00 23.05 kg/m2 Evie ey Seybold Body mass index (BMI) [Percentile] Per age and sex 2022-02-18 15:31:00 68.37 % Shira Seybo ld Systolic blood pressure 2021-09-06 19:47:00 110 mm[Hg] Shira Seybo ld Diastolic blood pressure 2021-09-06 19:47:00 66 mm[Hg] Shira ybo ld Heart rate 2021-09-06 19:47:00 68 /min Kelse y Seybold Body temperature 2021-09-06 19:47:00 36.67 Kamryn Shira Seybold Respiratory rate 2021-09-06 19:47:00 16 /min Shira Seybold Body height 2021-09-06 19:47:00 152.4 cm Evie ey Seybold Body weight 2021-09-06 19:47:00 49.896 kg Evie ey Seybold BMI 2021-09-06 19:47:00 21.48 kg/m2 Evie ey Seybold Body mass index (BMI) [Percentile] Per age and sex 2021-09-06 19:47:00 53.54 % Shira Seybo ld Systolic blood pressure 2021-08-31 19:25:00 109 mm[Hg] Shira Seybo ld Diastolic blood pressure 2021-08-31 19:25:00 63 mm[Hg] Shira Seybo ld Heart rate 2021-08-31 19:25:00 66 /min Kelse y Seybold Body temperature 2021-08-31 19:25:00 36.56 Kamryn Shira Seybold Body height 2021-08-31 19:25:00 152.4 cm Evie ey Seybold Body weight 2021-08-31 19:25:00 51.256 kg Evie ey Seybold BMI 2021-08-31 19:25:00 22.07 kg/m2 Evie ey Seybold Body mass index (BMI) [Percentile] Per age and sex 2021-08-31 19:25:00 60.40 % Shira Seybo ld Systolic blood pressure 2021-08-31 19:25:00 109 mm[Hg] Shira Seybo ld Diastolic blood pressure 2021-08-31 19:25:00 63 mm[Hg] Shira Seybo ld Heart rate 2021-08-31 19:25:00 66 /min Kelse y Seybold Body temperature 2021-08-31 19:25:00 36.56 Kamryn Shira Seybold Body height 2021-08-31 19:25:00 152.4 cm Evie ey Seybold Body weight 2021-08-31 19:25:00 51.256 kg Evie ey Seybold BMI 2021-08-31 19:25:00 22.07 kg/m2 Evie ey Seybold Body mass index (BMI) [Percentile] Per age and sex 2021-08-31 19:25:00 60.40 % Shira Seybo ld Systolic blood pressure 2021-08-14 13:52:00 104 mm[Hg] Shira Seybo ld Diastolic blood pressure 2021-08-14 13:52:00 56 mm[Hg] Shira Seybo ld Heart rate 2021-08-14 13:52:00 65 /min Kelse y Seybold Body temperature 2021-08-14 13:52:00 36.78 Kamryn Shira Seybold Respiratory rate 2021-08-14 13:52:00 16 /min Shira Fragoso Body height 2021-08-14 13:52:00 152.4 cm Evie Fragoso Body weight 2021-08-14 13:52:00 48.988 kg Evie arvizu Seybyoung BMI 2021-08-14 13:52:00 21.09 kg/m2 Evie Fragoso Body mass index (BMI) [Percentile] Per age and sex 2021-08-14 13:52:00 48.91 % Shira verde Systolic blood pressure 2021-08-14 13:52:00 104 mm[Hg] Shira verde Diastolic blood pressure 2021-08-14 13:52:00 56 mm[Hg] Shira verde Heart rate 2021-08-14 13:52:00 65 /min Lyle Fragoso Body temperature 2021-08-14 13:52:00 36.78 Kamryn Shira Fragoso Respiratory rate 2021-08-14 13:52:00 16 /min Shira Fragoso Body height 2021-08-14 13:52:00 152.4 cm Evie Fragoso Body weight 2021-08-14 13:52:00 48.988 kg Evie Fragoso BMI 2021-08-14 13:52:00 21.09 kg/m2 Evie Fragoso Body mass index (BMI) [Percentile] Per age and sex 2021-08-14 13:52:00 48.91 % Shira Shannon mehreen Procedures Procedure Date / Time Performed Performing Clinician Source TSH RFX ON ABNORMAL TO FREE T4 2025-05-30 00:00:00 Shira Fragoso - External HBSAG SCREEN 2025-05-26 00:00:00 Shira Evangelista External HCV ANTIBODY (HEPATITIS C) 2025-05-26 00:00:00 Shira Fragoso - External PANEL [id number] 3620-08-07 00:00:00 Shira jones - External RPR, RFX QN RPR/CONFIRM TP-PA 2025-05-26 00:00:00 Shira Evangelista External LS RAPID STREP ASSAY-LAB TEST 2022-02-18 15:49:34 [facility], [facility] AP[facility] ASCU Shira Fragoso - External CHLAMYDIA/GC AMPLIFICATION Shira Fragoso - External Plan of Care Planned Activity Planned Date Details Comments Source Encounters Start Date/Time End Date/Time Encounter Type Admission Type Attending [facility] Care Department Encounter ID Source 2025-07-19 15:00:00 2025-07-19 15:00:00 Outpatient PAYAM GOODWINTHIA SHIRA SILVA [id number] [facility] 2025-07-11 10:30:00 2025-07-11 10:30:00 Outpatient LAUREN ISADORA SILVA [id number] [facility] 2025-07-08 00:00:00 2025-07-08 00:00:00 Outpatient LAUREN ISADORA SILVA [id number] [facility] 2025-07-07 13:45:00 2025-07-07 13:45:00 Outpatient NEL ODONNELL [id number] [facility] 2025-05-30 10:30:00 2025-05-30 10:30:00 Outpatient PAYAM GOODWINTHIA SHIRA SILVA [id number] [facility] 2025-05-27 00:00:00 2025-05-27 00:00:00 Outpatient BIJAN REYMUNDO SHIRA SILVA [id number] [facility] 2025-05-26 10:20:00 2025-05-26 10:20:00 Outpatient CAIT SHIRA SILVA [id number] [facility] 2025-05-26 09:45:00 2025-05-26 09:45:00 Outpatient UDAY KOHLER [id number] [facility] 2025-05-20 00:00:00 2025-05-20 00:00:00 Outpatient MD SHIRA RIVERA [id number] [facility] 2025-05-18 00:00:00 2025-05-18 00:00:00 Outpatient ISADORA GOODWIN [id number] [facility] 2025-04-25 00:00:00 2025-04-25 00:00:00 Outpatient UDAY [facility]OHLER [id number] [facility] 2025-04-25 00:00:00 2025-04-25 00:00:00 Outpatient MD SHIRA RIVERA [id number] [facility] 2025-01-28 00:00:00 2025-01-28 00:00:00 Outpatient PAYAM GOODWINTHIA SHIRA SILVA [id number] [facility] 2024-08-07 00:00:00 2024-08-07 00:00:00 Outpatient TRINI HELM [id number] [facility] 2024-07-26 00:00:00 2024-07-26 00:00:00 Outpatient ISADORA GOODWIN SHIRA SILVA [id number] [facility] 2024-07-04 00:00:00 2024-07-04 00:00:00 Outpatient ISADORA GOODWIN SHIRA SILVA [id number] [facility] 2024-07-02 13:00:00 2024-07-02 13:00:00 Outpatient LABLibia SHIRA SILVA [id number] [facility] 2024-07-02 11:30:00 2024-07-02 11:30:00 Outpatient ISADORA GOODWIN SHIRA SILVA [id number] [facility] 2024-06-10 09:30:00 2024-06-10 09:30:00 Outpatient ISADORA GOODWIN SHIRA SILVA [id number] [facility] 2024-05-27 14:45:00 2024-05-27 14:45:00 Outpatient EDITA UDAY SHIRA SILVA [id number] [facility] 2024-05-12 00:00:00 2024-05-12 00:00:00 Outpatient TRINI HELM [id number] [facility] 2024-02-23 10:45:00 2024-02-23 10:45:00 Outpatient SKYLER GRISSOM [id number] [facility] 2023-12-16 14:00:00 2023-12-16 14:00:00 Outpatient ISADORA GOODWIN SHIRA SILVA [id number] [facility] 2023-11-03 13:30:00 2023-11-03 13:30:00 Outpatient CLARKE LIMON SHIRA SILVA [id number] [facility] 2023-07-02 00:00:00 2023-07-02 00:00:00 Outpatient VOLODYMYR, TRINI SHIRA SILVA [id number] [facility] 2023-06-30 00:00:00 2023-06-30 00:00:00 Outpatient ISADORA GOODWIN SHIRA SILVA [id number] [facility] 2023-06-22 00:00:00 2023-06-22 00:00:00 Outpatient VOLODYMYR, TRINI SILVA [id number] [facility] 2023-06-22 00:00:00 2023-06-22 00:00:00 Outpatient VOLODYMYR, TR[facility] [id number] [facility]:00:00 2023-06-20 00:00:00 Outpatient ISADORA GOODWIN SHIRA SILVA [id number] [facility] 2023-06-19 08:45:00 2023-06-19 08:45:00 Outpatient LAB90 SHIRA SILVA [id number] [facility] 2023-06-19 08:00:00 2023-06-19 08:00:00 Outpatient ISADORA GOODWIN SHIRA SILVA [id number] [facility] 2023-05-21 00:00:00 2023-05-21 00:00:00 Outpatient VOLODYMYR TRINI SILVA [id number] [facility] 2022-12-26 00:00:00 2022-12-26 00:00:00 Outpatient VOLODYMYR, TRINI SILVA [id number] [facility] 2022-11-07 00:00:00 2022-11-07 00:00:00 Outpatient [facility] HEL[facility] [id number] [facility] 2022-04-24 11:15:00 2022-04-24 11:15:00 Outpatient LAB90 SHIRA SILVA [id number] [facility] 2022-04-24 10:30:00 2022-04-24 11:00:00 Office Visit Trini Helm [id number] [facility] 2022-04-23 10:30:00 2022-04-23 10:30:00 Outpatient TRINI HELMKIP SILVA [id number] [facility] 2022-04-19 10:30:00 2022-04-19 10:30:00 Outpatient TRINI HELM SHIRA SILVA [id number] [facility] 2022-02-18 10:30:00 2022-02-18 10:45:00 Office Visit Trini Helm Horner [id number] [facility] 2021-10-18 00:00:00 2021-10-18 00:00:00 Outpatient TRINI HELMKIP SILVA [id number] [facility] 2021-09-28 11:00:00 2021-09-28 11:00:00 Outpatient TRINI HELMKIP SILVA [id number] [facility] 2021-09-21 11:30:00 2021-09-21 11:30:00 Outpatient TRINI HELM SHIRA SILVA [id number] [facility] 2021-09-06 14:00:00 2021-09-06 14:30:00 Office Visit Trini Helm Jackson [id number] [facility] 2021-08-31 13:19:58 2021-08-31 13:49:58 Office Visit Trini Helm Horner [id number] 2021-08-31 13:19:58 2021-08-31 13:49:58 Office Visit Trini Helm [id number] Shira Fragoso 2021-08-14 09:45:00 2021-08-14 09:45:00 Outpatient LAB90 SHIRA SILVA [id number] Shirakip Fragoso 2021-08-14 08:43:42 2021-08-14 09:13:42 Office Visit Trini Helm [id number] 2021-08-14 08:43:42 2021-08-14 09:13:42 Office Visit Trini Helm [id number] Shira chonyoung Results Test Description Test Time Test Comments Results Result Co mments Source Shira jer Notes [1]Upcoming Encounters Date/Time Note Provider Source 2025-07-07 13:49:13 ShiraHarvey [facility] 2025-07-07 13:49:13 Nel Odonnell FNP-Nilson - 07/07/2025 1:34 PM CDT LYDIA Ca is a 19 year old female who presents via a Video Visit for Headache . Verbal consent was obtained from the patient- this video visit is to assess your health and treat any condition remotely. Since we are in the different locations, we must rely on the information you provide [place] [facility] So we encourage you to ask questions. You will be responsible for any copay. Provider location: At Home Patient location: home I have reviewed the past Medical, Family, and Social history. For the past month, left side headaches sometimes with blurry sight, reports left side of my brain feels like a constant push, it s always on the left side of my head, reports lightheaded/nauseous. Reports her mom had a brain tumor and my grandma has had brain aneurysms so would like to get some peace of mind of what s going on with my head. She does deal with headache/migraines in the past. States this is worst. She has taken advil with relief. Reports she does drink a lot of water. She is scheduled for annual physical and labs 07/19/25 Current Medications[1] Patient has no known allergies. Review of Systems All systems are negative, except those pertinent items mentioned above in the HPI. Review of Systems Constitutional: Negative for fatigue and fever. Gastrointestinal: Positive for nausea. Neurological: Positive for light-headedness and headaches. Physical Exam No Vitals taken during this visit due to being in a Video Visit setting. Speaks in complete sentences, non-labored breathing. Patient is awake, alert, and oriented. No apparent distress. Assessment & Plan 1. Migraine without status migrainosus, not intractable, unspecified migraine type - Sumatriptan Succinate 25 MG oral Tablet; Take 1 tablet (25 mg total) by mouth once as needed for migraine (May repeat in 2 hours if unresolved. Do not exceed 200 mg in 24 hours.). Dispense: 9 tablet; Refill: 0 Patient understands limitations of telemedicine, given no physical examination is conducted and verbalizes understanding of the same. Patient aware that clinical decisions will be based on history and somewhat limited visual/audio examination. Plan discussed with patient in detail and given ample time to ask questions. Questions answered to the best of my ability. Advise follow up if no improvement (call/send MKO and/or schedule in clinic appt if applicable). ER precautions also advised in the event of any worsening symptoms. Nel Odonnell APRN, [employer] Supervising Physician: Dr Ar[facility] Higgins [facility] Current Outpatient Medications Medication Sig Dispense Refill Sumatriptan Succinate 25 MG oral Tablet Take 1 tablet (25 mg total) by mouth once as needed for migraine (May repeat in 2 hours if unresolved. Do not exceed 200 mg in 24 hours.). 9 tablet 0 Escitalopram Oxalate 10 MG oral Tablet Take 1 tablet (10 mg total) by mouth daily. 90 tablet 1 Levothyroxine Sodium 25 MCG oral Tablet Take 1 tablet (25 mcg total) by mouth daily Please take 30 minutes before breakfast on empty stomach. 90 tablet 1 Norethin Cesar-Eth Estrad-FE ([facility] 11/08) 1-20 MG-MCG oral Tablet Take 1 tablet by mouth daily. 84 tablet 3 No current facility-administered medications for this visit. [facility] Health Maintenance Due Date Last Done Comments Influenza Vaccines (#1) 2025 07/02/2024 Tdap Vaccines 05/29/2026 05/29/2016, 05/29/2016 Physical Exam 05/26/2027 05/26/2025, 04/2025, 05/26/2025, Additional history exists PAP SMEAR -05/26/2028 05/26/2025 Lipid Panel 07/02/2029 07/02/2024, 05/22, 04/24/2022 RSV Vaccines (1 - 1-dose 75+ series) 2078 Pneumococcal Vaccine: Pediatrics (0 to 5 Years) and At-Risk Patients (6 to 64 Years) Aged Out 04/17/2005, 12/05/2004, 06/05/2004, Additional history exists No longer eligible based on patient's age to complete this topic HPV Vaccines Completed 05/22/2020, 12/18, 05/29/2016, Additional history exists Meningococcal ACWY Vaccines Completed 12/2019, 05/22/2020, 05/29/2016, Additional history exists [facility]2025-09-18 13:49:13 Diagnosis Migraine without status migr ainosus, not intractable, unspecified migraine type - Primary [facility]2025-09-18 13:49:13 [place] [id number] 11:02:05* [place] [id number] 11:02:05* Isadora Goodwin FNP-C - 05/30/2025 10:30 AM CDT HPI Miguel Ca is a 19 year old female is here for Follow-up HPI Patient presents for follow-up hypothyroidism ANTOINETTE 07/02/2024 Doing well Taking levothyroxine 25 mcg daily Will need repeat lab today Denies any fatigue, heat intolerance, cold intolerance, palpitations, shortness of breath. 07/02/2024: Glucose 81. Creatinine 0.6. GFR 132. AST 22. ALT 19. TSH 3.02. Free T41.17. A1c 5.7. Total cholesterol 145. Triglycerides 71. HDL 60. LDL 71. REVIEW OF SYSTEM All systems are negative, except those pertinent items mentioned in the HPI. PERTINENT HX Allergies: Patient has no known allergies. Current Medications: Current Medications[1] I have reviewed the past Medical, Family, and Social history. PHYSICAL EXAM BP 112/77 (Side: Left Arm, Position: SITTING, Cuff Size: Medium Adult) | Pulse 58 | Temp 96.5 ?F (35.8 ?C) (Tympanic) | Resp 19 | Ht 5' 1" (1.549 m) | Wt 146 lb (66.2 kg) | LMP 05/30/2025 (Exact Date) | SpO2 100% | BMI 27.59 kg/m? Patient's last menstrual period was 05/30/2025 (exact date). Physical Exam Vitals and nursing note reviewed. Constitutional: General: She is not in acute distress. Appearance: Normal appearance. She is not ill-appearing or toxic-appearing. Cardiovascular: Rate and Rhythm: Normal rate and regular rhythm. Heart sounds: Normal heart sounds. No murmur heard. Pulmonary: Effort: Pulmonary effort is normal. No respiratory distress. Neurological: Mental Status: She is alert. Psychiatric: Mood and Affect: Mood normal. Behavior: Behavior normal. Thought Content: Thought content normal. Judgment: Judgment normal. ASSESSMENT AND PLAN Miguel was seen today for follow-up. Diagnoses and all orders for this visit: Hypothyroidism, unspecified type - TSH RFX ON ABNORMAL TO FREE T4; Future Recommend to obtain a repeat thyroid labs today. Recommend to continue levothyroxine 25 mcg daily. Return in about 6 weeks (around 07/11/2025) for physical. Isadora Goodwin, CUSTOM WOOD STAIR BUILDER-CSP: DO Shira AbbottRichmond Patterson This document was completed using voice recognition software. This can produce photogrammetric engineer errors that can at times significantly distort words and phrases. Please interpret any aspect of the note that is nonsensical in light of this fact. [1]Current Outpatient Medications Medication Sig Dispense Refill Escitalopram Oxalate 10 MG oral Tablet Take 1 tablet (10 mg total) by mouth daily. 90 tablet 1 Levothyroxine Sodium 25 MCG oral Tablet Take 1 tablet (25 mcg total) by mouth daily Please take 30 minutes before breakfast on empty stomach. 90 tablet 1 Norethin Cesar-Eth Estrad-FE ([facility] 11/08) 1-20 MG-MCG oral Tablet Take 1 tablet by mouth daily. 84 tablet 3 No current facility-administered medications for this visit. Ayaz [id number] 11:02:05Upcoming Encounters Scheduled Orders Name Type Priority Associated Diagnoses Orde r Schedule TSH RFX ON ABNORMAL TO FREE T4 Lab Routine Hypothyroidism, unspecified type Expected: 05/30/2025 (Approximate), Expires: 07/29/2025 Health Maintenance Due Date Last Done Comments COVID-19 Vaccine ( season) 2024 PAP SMEAR -11/16/2024 Influenza Vaccines (#1) 2025 07/02/2024 Tdap Vaccines 05/29/2026 05/29/2016, 05/29/2016 Physical Exam 05/26/2027 05/26/2025, 04/2025, 05/26/2025, Additional history exists Lipid Panel 07/02/2029 07/02/2024, 05/22, 04/24/2022 RSV Vaccines (1 - 1-dose 75+ series) 2078 Pneumococcal Vaccine: Pediatrics (0 to 5 Years) and At-Risk Patients (6 to 64 Years) Aged Out 04/17/2005, 12/05/2004, 06/05/2004, Additional history exists No longer eligible based on patient's age to complete this topic HPV Vaccines Completed 05/22/2020, 12/18, 05/29/2016, Additional history exists Meningococcal ACWY Vaccines Completed 12/2019, 05/22/2020, 05/29/2016, Additional history exists ShiraRichmond [id number] 11:02:05 Diagnosis Hypothyroidism, unspecified type - Primary [facility]2025-08-11 11:02:05 [facility]2025-08-07 10:00:46* [facility]2025-08-07 10:00:46* Patient Instructions* Uday Kohler MD - 05/24/2025 10:04 AM CDT Images from the original note were not included. Your New Prescription for Managing Your Health Care Online. Are you a regular user of the Internet? Do you bank or shop online? If the answer is "yes," then now is the time to sign up for [employer], your direct, secure connection to the health disabilities caregiver you rely on at [facility]. [employer] provides a secure login, which allows you to: Receive lab and imaging results electronically from your health care team. Request an appointment. Schedule an appointment. E-mail your health care team. View past and future appointments. Request updates to insurance and demographic information. And more! To get started, just log on to [email or web address] and select "If you do not have an access code and would like to enroll in [employer]...Click here." Enrollment is a multi-step process that includes answering four questions to confirm your identity and creating a unique user ID and password. It's easy and secure. And it's free! Index SpanishPelvic Exam KEY POINTS A pelvic exam is a checkup of your vulva, cervix, uterus, vagina, ovaries, and fallopian tubes. A pelvic exam may be done to check for growths, cysts, infection, or abnormal changes in cells that could be cancer. If you are having a Pap test when you have a pelvic exam, try to schedule the exam when you will not be having your period. These exams are usually not done during your period. What is a pelvic exam? A pelvic exam is a checkup of your vulva, cervix, uterus, vagina, ovaries, and fallopian tubes. The vulva is the outer part of your genitals. It includes the skin around the opening of the vagina ( canal) and urethra (where urine leaves your body). The cervix is the opening of the uterus into the vagina. The uterus is the muscular organ at the top of the vagina. Babies develop in the uterus and pass through the vagina when they are born. Menstrual blood forms in the uterus each month and flows out of the vagina during your period. The ovaries are glands on either side of the uterus in your lower belly. Before menopause, the ovaries produce eggs. The fallopian tubes carry the eggs from the ovaries to the uterus. The tests that are done during your pelvic exam will depend on your needs. A Pap test may be done during a pelvic exam. It checks for abnormal changes in the cells of the cervix. Talk to your healthcare provider about how often you need to have a pelvic exam and a Pap test. When is it used? A pelvic exam may be done to check for: Normal development of the female organs Irritation or infection, including sexually transmitted diseases Abnormal changes in the cells of the cervix, including cells that could be cancer Growths in the uterus such as fibroids Ovarian cysts (fluid-filled sacs in or on an ovary) Vaginal dryness and other changes caused by decreased hormone levels during menopause Ask your healthcare provider to explain why you are having the exam and any risks. How do I prepare for a pelvic exam? If you are having a Pap test when you have a pelvic exam, try to schedule the exam when you will not be having your period. These exams are usually not done during your period. Your healthcare provider may recommend that you do not douche, use vaginal creams or ointments, or have sex for a few days before the exam. Ask any questions you have before the procedure. You should understand what your healthcare provider is going to do. You have the right to make decisions about your healthcare and to give permission for any tests or procedures. What happens during the exam? Just before the exam, you should empty your bladder. You will take off your clothes and put on a gown. A cloth will be draped over the lower part of your body. You will lie on your back on the exam table with your knees bent and the heels of your feet in stirrup heel holders. You will be asked to slide your hips to the end of the table and let your knees tilt to each side so that your legs are spread apart. The pelvic exam takes only a few minutes. Your healthcare provider will check for any swelling, sores, or warts on your vulva. Then he or she will gently put a thin, lubricated tool called a speculum into your vagina. The speculum holds open the valero of the vagina so your provider can see the cervix. You may feel some discomfort in your lower belly and vagina during the exam. Try to stay relaxed and to breathe slowly and deeply. This will help keep your muscles relaxed and make it easier for your provider to do the exam. If you have a Pap test during the exam, your healthcare provider will use a tiny brush to collect cells from your cervix. The cells will be examined in the lab. A sample of vaginal discharge may also be tested in the lab. After the samples are taken your provider will remove the speculum. Your healthcare provider will then put 1 or 2 lubricated, gloved fingers in your vagina and a hand on your belly to feel the size and shape of your organs. This may not be comfortable, but it is usually not painful. Your provider may also put a finger in your rectum to check for lumps or other problems. What happens after the exam? Your healthcare provider may ask questions about sex, menstrual periods, control, or hormone problems that are related to the results of your exam. What are the risks of this procedure? Every procedure or treatment has risks. Rarely, you may have an infection or bleeding. Ask your healthcare provider how these risks apply to you. Be sure to discuss any other questions or concerns that you may have. Developed by [employer]. Adult Advisor 2022.1 published by [employer]. Last modified: 2018-12-01 Last reviewed: 2018-05-22 This content is reviewed periodically and is subject to change as new health information becomes available. The information is intended to inform and educate and is not a replacement for medical evaluation, advice, diagnosis or treatment by a healthcare professional. References Adult Advisor 2022.1 Index ? 2022 [employer] and/or one of its subsidiaries Index Tunisian Related topicsPap Test KEY POINTS A Pap test is a screening test done during a pelvic exam to check for abnormal changes in the thin layer of cells that cover the cervix or vagina. Schedule your Pap test between menstrual periods. Don’t douche, use creams or medicines in your vagina, or have sex for a day or two before the test. If the test result is normal, you don’t need follow-up tests or treatment. If the test result is abnormal, ask your healthcare provider what types of abnormal changes were found and what follow-up tests you might need. What is a Pap test? A Pap test is a screening test done during a pelvic exam. It checks for abnormal changes in the thin layer of cells that cover the cervix or vagina. The cervix is the lower part of the uterus that opens into the vagina. The vagina is the canal. The Pap test is also called a Pap smear or cervical smear. Why is this test done? This test is done to check for cervical cancer or precancerous changes in the cells called cervical intraepithelial neoplasia (PAULO). Cervical cancer can be prevented if abnormal cells are found and treated before they become cancerous. Regular screening with Pap tests has reduced deaths from cervical cancer. The Pap test may also detect vaginal infections such as yeast infections, bacterial vaginosis, or trichomonas. A human papillomavirus (HPV) test may be done at the same time as the Pap smear, using the same cells or different cells taken from your cervix. HPV infection can cause cervical cancer. How often should I have a Pap test? You should have your first Pap test at age 21, even if you are not sexually active. Then you should have a Pap test at least every 3 years until you are 65. If you are 30 or older, your healthcare provider may suggest combining a Pap test with an HPV test every 5 years instead of a Pap test every 3 years. You may need more frequent Pap tests if there are things that put you at a higher risk for cervical cancer or if you have had abnormal Pap tests. If you are over 65 years old, ask your healthcare provider if you can stop having Pap tests. If you have had a hysterectomy to remove your uterus and cervix, for reasons other than cancer, you may not need to have Pap tests. If your cervix was not removed or you had a hysterectomy because of cancer or abnormal cells, you will need to keep having Pap tests as advised by your healthcare provider. You and your healthcare provider can decide what testing schedule is right for you. Your healthcare provider may also recommend a pelvic exam every 1 to 3 years. A pelvic exam is a checkup of your female organs, which include the vagina, cervix, uterus, fallopian tubes, and ovaries. How do I prepare for this test? Don’t schedule your Pap test during your menstrual period. The best time to schedule the test is at a time when you are between periods. Don’t douche for at least 2 days before the test. Don’t use any creams or medicine in your vagina for at least 2 days before the test unless your healthcare provider tells you to. Don’t have sex for 1 or 2 days before the Pap test because it can affect the results. How is the test done? A Pap test takes only a few minutes and is done during a pelvic exam. You will lie on your back on the exam table with your knees bent and the heels of your feet in stirrup heel holders. Your healthcare provider will put a small tool called a speculum into your vagina to hold the vaginal valero open during the exam. Your provider will use a small, soft brush to take a few cells from the cervix. The cells will be sent to a lab for testing. The Pap test is not painful, but you may feel some discomfort when the speculum is put into your vagina. What does the test result mean? If the test result is normal, you don’t need follow-up tests or treatment. If the test result is abnormal, ask your healthcare provider what types of abnormal changes were found and what follow-up tests you might need. Test results are only one part of a larger picture that takes into account your medical history and current health. Sometimes a test needs to be repeated to check the first result. Talk to your healthcare provider about your result and ask questions such as: If you need more tests What kind of treatment you might need What lifestyle, diet, or other changes you might need to make Developed by [employer]. Adult Advisor 2022.1 published by [employer]. Last modified: 2021 Last reviewed: 2021-10-09 This content is reviewed periodically and is subject to change as new health information becomes available. The information is intended to inform and educate and is not a replacement for medical evaluation, advice, diagnosis or treatment by a healthcare professional. References Adult Advisor 2022.1 Index ? 2022 [employer] and/or one of its subsidiaries Index Tunisian Related topicsHuman Papillomavirus (HPV) KEY POINTS Human papillomavirus (HPV) is a group of viruses that can cause papillomas (warts), including genital warts. Warts are small growths or bumps on the skin. They may be found on the vagina, penis, and scrotum, and in the area around the anus. Treatment may include medicine on the warts or removal of the warts with freezing or surgery. If you have genital warts and plan to get , get treatment for the warts before you get . A vaccine is available to prevent types of HPV infection that can cause genital warts and cancer of the cervix. What is human papillomavirus? Human papillomavirus (HPV) is a group of viruses that can cause papillomas (skin warts and genital warts) and some forms of cancer. Warts are small growths or bumps on the skin. There are many types of HPV. Most of the time, HPV does not cause health problems. Some types of HPV cause genital warts, and others cause warts on other parts of the body. However, some types of HPV can cause cancer of the cervix, vagina, or vulva in women, and cancer of the penis in men. In both females and males, HPV can cause cancer of the anus, mouth, or throat. What is the cause? HPV is a common sexually transmitted disease spread by [id number] contact. Most sexually-active people will get at least one type of HPV at some time in their lives. Genital warts are more contagious and more easily spread than other warts. They may spread to other nearby parts of the body and they may be passed from person to person during sexual activity. It is not known why some people develop cancer or other health problems after being infected with HPV. You may be at higher risk if you have a weakened immune system from: Taking medicines to prevent organ transplant rejection Cancer treatment HIV/AIDS What are the symptoms? You can be infected with HPV without having visible warts or any other symptoms, and symptoms may vary based on what body part is affected: HPV infection may cause a neck mass, persistent sore throat, trouble swallowing, mouth sores, or bleeding in the mouth. HPV infection on the genitals of either a male or female may be a single visible wart or a large cluster of warts that can be painful and bleed during sex. HPV infection in the anus can cause rectal itching, bleeding, or discharge. The warts usually first appear 1 to 6 months after contact with an infected person. You may have many warts or just 1 wart. In men, warts can grow on the tip or shaft of the penis and sometimes on the scrotum, in the urethra (the tube that carries urine out of the body), or around the anus. In women, warts can grow in the vulva (the folds of skin around the opening of the vagina), on the cervix, inside the vagina or urethra, or around the anus. How are they diagnosed? Your healthcare provider will ask about your symptoms, activities, sexual and medical history, and examine you. In women, genital warts that are not causing symptoms may be found during a routine pelvic exam and Pap test, which is a screening test done to check for abnormal changes in the cells of the cervix or vagina. An HPV-DNA test can be done at the same time for women age 30 and over to see if the type of HPV causing the warts is the type that may cause cancer. Because some types of HPV can cause precancerous or cancerous changes in the cervix, it is important for women who have had HPV infection to have regular Pap tests to check for abnormal cells. Cervical cancer can be prevented with regular Pap tests and follow-up. Your provider may put a liquid on the skin to make it easier to see warts or use a magnifying scope to look closely at your genitals. A biopsy may be taken to help make a diagnosis. A biopsy is the removal of a small sample of tissue for testing. There is no test to check for HPV infection in the mouth and throat. How are they treated? HPV is a common virus and may not need treatment unless it causes warts or other skin changes. If you have an HPV infection on your cervix, your healthcare provider will talk with you about treatment choices to remove abnormal cells or to do more testing and have follow-up visits. There are several ways to treat warts caused by HPV. Usually the treatment is done in the provider's office. Your healthcare provider may: Put medicine on the warts Surgically remove the warts Freeze the warts with liquid nitrogen (cryotherapy) Destroy the warts with a laser You may need a local anesthetic to numb the area before some of these treatments. In some cases, your provider may advise waiting to see if the warts go away on their own. Removal of the warts does not get rid of the virus. You may get more warts after treatment. How can I take care of myself? Follow the full course of treatment prescribed by your healthcare provider. In addition: Keep your genital area clean and dry. Wash your hands well after touching the area where you have warts. Don’t scratch the warts. Ask your provider: How and when you will get your test results How long it will take to recover If there are activities you should avoid and when you can return to normal activities How to take care of yourself at home What symptoms or problems you should watch for and what to do if you have them Make sure you know when you should come back for a checkup. Keep all appointments for provider visits or tests. If you have genital warts and plan to get , have your warts checked by your provider. How can I help prevent the spread of HPV? The best way to prevent the spread of HPV is by not having sex. HPV vaccines are available to prevent several types of HPV infection, including those that can cause genital warts and cancer. If you already have HPV, the vaccine will not cure your infection, but it will help prevent infections from other types of HPV. HPV vaccines are approved for people age 9 to 45 years old. The vaccine is most effective if it is given before a young man or woman has sex for the first time. The best age to give the vaccine to children is at 11 to 12 years of age. It is given as a series of shots over 6 months. The HPV vaccine is usually not given to women. Here are some other things you can do to help prevent HPV or its complications: Women: Get an exam every year and a Pap test as often as your healthcare provider recommends. Use latex or polyurethane condoms the right way during foreplay and every time you have vaginal, oral, or anal sex. Even after your warts are gone, you can infect your partner because the virus is still in your body. Condoms can lower the risk of getting genital warts from another person, but HPV can spread from areas not covered by a condom. Have just 1 sexual partner who is not sexually active with anyone else and who will use protection every time you have sex. Avoid sexual contact until the genital warts or HPV is completely treated and healed. Developed by [employer]. Adult Advisor 2022. published by [employer]. Last modified: 2020-10-30 Last reviewed: 2018-03-12 This content is reviewed periodically and is subject to change as new health information becomes available. The information is intended to inform and educate and is not a replacement for medical evaluation, advice, diagnosis or treatment by a healthcare professional. References Adult Advisor 2022.1 Index ? 2022 [employer] and/or one of its subsidiaries [facility]2025-08-07 10:00:46* Uday Kohler MD - 05/26/2025 9:55 AM CDT Well Woman Exam cc: [employer] HPI: Miguel Ca is a 19 year old who presents for [employer]. Today she is doing well. Regular monthly cycles, denies heavy bleeding, significant dysmenorrhea. Happy with current OCPs. 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 OB History Para Term AB Living 0 0 0 0 0 0 SAB IAB Ectopic Molar Multiple Live Births 0 0 0 0 0 0 Past Medical History: Diagnosis Date Hypothyroidism 5-6 yrs ago was diagnosed Major depressive disorder with single episode, in full remission diagnosed 3 yrs ago Past Surgical History: Procedure Laterality Date NDSC WRST SURG W/RLS TRANSVRS CARPL LIGM Right 11/13/2023 Meds: Please see med reconciliation Allergies: Please see EMR Social: Social History Tobacco Use Smoking status: Never Smokeless tobacco: Never Vaping Use Vaping status: Never Used Substance and Sexual Activity Alcohol use: Never Drug use: Never Sexual activity: Yes Social Drivers of Health Physical Activity: Insufficiently Active (06/19/2023) Exercise Vital Sign Days of Exercise per Week: 2 days Minutes of Exercise per Session: 30 min Family history: Family History Problem Relation Age of Onset Diabetes Mellitus Mother type 1 Thyroid Disease Mother hypothyroidism Hypertension Father Breast Cancer Neg Hx Ovarian Cancer Neg Hx Cervical Cancer Neg Hx Colon Cancer Neg Hx PE: BP 119/81 (Side: Right Arm, Position: SITTING, Cuff Size: Small Adult) | Pulse 65 | Resp 18 | Ht 5' 1" | LMP 05/02/2025 | BMI 25.70 kg/m? Gen: NAD, A&Ox3 Neck: Supple, no thyroid masses Breast: normal appearing nipples without retraction, Soft, no masses, lumps, or LAD bilaterally CV: equal expansion, normocardic, no LE edema GI: soft, NT/ND, no guarding or rebound Ext: Normal ROM Skin: warm and dry, no rashes Speculum: NEFG, normal appearing cervix without lesions, no abnormal discharge or bleeding Bimanual: small mobile uterus, no adnexal masses palpated bilaterally, nontender bilaterally Psych: normal affect Pt consented verbally to exam. Exam chaperoned by Dough Catcher. Assessment/Plan: 19 year old presents for WWE. 1. Well woman exam with routine gynecological exam- PAP IG, RFX APTIMA HPV ASCU - CHLAMYDIA/GC AMPLIFICATION - HBSAG SCREEN; Future - HCV ANTIBODY (HEPATITIS C); Future - PANEL [id number]; Future - RPR, RFX QN RPR/CONFIRM TP-PA; Future -Refill for OCPs today-Pap today -STI panel today -HPV vaccine UTD RTC: Return in 1 year (on 05/26/2026). 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 [facility]2025-08-07 10:00:46Upcoming Encounters Scheduled Orders Name Type Priority Associated Diagnoses Orde r Schedule PAP IG, RFX APTIMA HPV ASCU Lab Routine Well woman exam with routine gynecological exam Ordered: 05/26/2025 CHLAMYDIA/GC AMPLIFICATION Lab Routine W ell woman exam with routine gynecological exam Ordered: 05/26/2025 HBSAG SCREEN Lab Routine Well woman exam with routine gynecological exam Expected: 05/26/2025, Expires: 08/24/2025 HCV ANTIBODY (HEPATITIS C) Lab Routine W ell woman exam with routine gynecological exam Expected: 05/26/2025, Expires: 08/24/2025 PANEL [id number] Lab Routine Well woman exam with routine gynecological exam Expected: 05/26/2025, Expires: 08/24/2025 RPR, RFX QN RPR/CONFIRM TP-PA Lab Routine Well woman exam with routine gynecological exam Expected: 05/26/2025, Expires: 08/24/2025 Health Maintenance Due Date Last Done Comments COVID-19 Vaccine ( season) 2024 PAP SMEAR 21-30 2024 Influenza Vaccines (#1) 2025 07/02/2024 Tdap Vaccines 05/29/2026 05/29/2016, 05/29/2016 Physical Exam 05/26/2027 05/26/2025, 0804/2025, 07/02/2024, Additional history exists Lipid Panel 07/02/2029 07/02/2024, 05/22, 04/24/2022 RSV Vaccines (1 - 1-dose 75+ series) 2078 Pneumococcal Vaccine: Pediatrics (0 to 5 Years) and At-Risk Patients (6 to 64 Years) Aged Out 04/17/2005, 12/05/2004, 06/05/2004, Additional history exists No longer eligible based on patient's age to complete this topic HPV Vaccines Completed 05/22/2020, 12/18, 05/29/2016, Additional history exists Meningococcal ACWY Vaccines Completed 12/2019, 05/22/2020, 05/29/2016, Additional history exists [place] [id number] 10:00:46 Diagnosis Well woman exam with routine gynecological exam - Primary [facility] [id number] 10:00:46 [place] [id number] 09:39:13 Chief Complaint Patient presents with Well Woman Exam Venecia Escoto MA [facility] [id number] 11:30:19 Chief Complaint Patient presents with Physical Fasting for labs Nia Espinoza LVN [facility] [id number] 14:51:46 Chief Complaint Patient presents with Well Woman Exam Ayaz [id number] 14:02:03 Chief Complaint Patient presents with Medication Follow-up Wants to see about getting control Nia Espinoza LVN IRATORY ASSISTANT [facility] [id number] 13:30:37 Chief Complaint Patient presents with Hand Pain Cyst on top of right hand. Marisol Saldaña MA II [facility]2023-08-31 07:53:32 Patient is here for c/o sore throat and stomache "weirdness" x 3 days. [facility]
[2025-07-09 09:51] LABS: Absolute Lymphocytes (CBC) 2.4 K/uL (0.7-4.9); Hematocrit 46.3 % (36.0-45.0); Hemoglobin 15.8 g/dL (12.0-15.0); MCH 28.4 pg (27.0-35.0); MCHC 34.1 g/dL (32.0-36.0); MCV 83.5 fL (80-100); MPV 8.1 fL (7.6-11.3); Nucleated RBC Absolute Count 0.0 (0-0); Nucleated Red Blood Cells % 0.0 % (0-0); RBC Red Blood Cell Count 5.54 M/uL (3.86-4.86); White Blood Count 5.90 thou/uL (4.3-10.9)
--- NOTE | 2025-07-09 10:06 | RAD REPORT ---
EXAM: CT brain without contrast HISTORY: HEADACHE COMPARISON: None TECHNIQUE: Multiple contiguous axial images were obtained and a CT of the brain without contrast. Sag ittal and coronal reformats were performed. One or more of the following dose reduction techniques were used: Automated exposure control, adjust ment of the mA and/or kV according to patient size, and/or iterative reconstruction. FINDINGS: No evidence of hydrocephalus, intracranial hemorrhage, or extra-axial fluid collection. The brain is normal in morphology. No evidence of midline shift or areas of brain edema. The calvarium is intact. The visualized paranasal sinuses and mastoid air cells are essentially clear . IMPRESSION: No evidence of acute intracranial abnormality.
[2025-07-09 10:07] LABS: ALT/SGPT 25 U/L (13-56); AST/SGOT 19 U/L (15-37); Albumin 3.7 g/dL (3.4-5.0); Albumin/Globulin Ratio 1.0 (1.1-1.8); Alkaline Phosphatase 44 U/L (45-117); Anion Gap 7.1 mEq/L (5.0-15.0); BUN Blood Urea Nitrogen 12 mg/dL (7-18); Globulin 3.6 g/dL (2.3-3.5); Glucose Level 90 mg/dL (74-106); Magnesium 2.1 mg/dL (1.6-2.4); Potassium 4.1 mEq/L (3.5-5.1)
[2025-07-09 10:09] LABS: Bilirubin Indirect, Calculated 0.3 mg/dL (0.2-0.8)
[2025-07-09] MEDS ORDERED: METOCLOPRAMIDE 10 MG/2mL INJ ONE (10:10)
[2025-07-09] MEDS ORDERED: DIPHENHYDRAMINE 50 MG/ML VIAL ONE (10:10)
[2025-07-09] MEDS ORDERED: NA CHLORIDE 0.9% 1,000 ML ONE (10:10)
[2025-07-09] MEDS ORDERED: KETOROLAC 30 MG/ML INJ ONE (10:10)
[2025-07-09 10:49] LABS: Thyroid Stimulating Hormone 2.790 uIU/mL (0.358-3.740)
--- NOTE | 2025-07-09 10:54 | EDPHYS ---
Physician Documentation [facility] Name: Edie Ca Age: 19 yrs Sex: Female : 2005 Arrival Date: 07/09/2025 Time: 09:13 Bed 20 Private MD: ED Physician Tony Olmedo HPI: 07/09 09:26 This 19 yrs old Female presents to ER via Unassigned with complaints of sb4 Headache. 09:26 The patient complains of pain to the left frontal area and left temporal area. sb4 09:27 Patient reports a left-sided headache for about a month now. She states that it has sb4 slowly gotten worse. She had a telehealth appointment a few days ago and was prescribed "migraine medication" but that has not helped. States that she feels dizzy at times and nauseated. Denies any trauma to the head. Denies any sensitivity to light or noise. Does endorse nausea, has vomited once. Has been taking Excedrin without significant relief in symptoms. Denies any migraine history prior to this. Historical: - Allergies: : No Known Allergies; hb - Home Meds: : escitalopram oxalate Oral [Active]; levothyroxine oral [Active]; hb - PMHx: : Anxiety; Hypothyroidism; hb - PSHx: : Wrist - Right; hb - Immunization history:: Adult Immunizations up to date. - Infectious Disease History:: Denies. - Social history:: Smoking status: Patient denies any tobacco usage or history of. ROS: 09:27 Constitutional: Negative for fever, chills, and weight loss, sb4 09:27 Neuro: Positive for dizziness, headache, :27 All other systems are negative, Exam: : Constitutional: This is a well developed, well nourished patient who is awake, alert, sb4 and in no acute distress. Head/Face: Normocephalic, atraumatic. Eyes: Extra-ocular motions intact. Periorbital areas with no swelling, redness, or edema. ENT: Mucous membranes moist. Cardiovascular: Regular rate and rhythm with a normal S1 and S2. Respiratory: No increased work of breathing, no retractions or nasal flaring. Abdomen/GI: Soft, non-tender, no distension. Skin: Warm, dry with normal turgor. Normal color with no rashes, no lesions, and no evidence of cellulitis. MS/ Extremity: Pulses equal, no cyanosis. Neurovascular intact. Full, normal range of motion. Neuro: Awake and alert, GCS 15, oriented to person, place, time, and situation. Motor strength 5/5 in all extremities. Sensory grossly intact. 09:27 Neuro: Gait: is steady, at a normal pace, without difficulty, Vital Signs: 09:26 BP 126 / 93; Pulse 75; Resp 16; Temp 99.2(O); Pulse Ox 99% on R/A; Weight 63.96 kg; hb Pain 5/10; 10:15 BP 111 / 87; Pulse 65; Resp 16; Pulse Ox 99% on R/A; db 11:00 BP 99 / 69; Pulse 67; Resp 16; Pulse Ox 100% ; db 09:26 Pain Scale: Adult hb [place] Coma Score: 09:30 Eye Response: spontaneous(4). Motor Response: obeys commands(6). Verbal Response: sb4 oriented(5). Total: 15. MDM: 09:18 Medical Screening Exam initiated sb4 09:30 Differential diagnosis: cluster headache, hypertensive headache, hypoglycemia, sb4 hyponatremia, intracerebral hemorrhage, migraine, neoplasm, sinusitis, tension headache. Historians other than the Patient: Parent: mother. 10:38 Data reviewed: vital signs, nurses notes, lab test result(s), radiologic studies, CT sb4 scan, and as a result, I will discharge patient. Counseling: I had a detailed discussion with the patient and/or guardian regarding the historical points, exam findings, and any diagnostic results supporting the discharge/admit diagnosis, lab results, radiology results, the need for outpatient follow up, a neurologist, to return to the emergency department if symptoms worsen or persist or if there are any questions or concerns that arise at home. 07/09 09:25 Order name: Basic Metabolic Panel; Complete Time: 10:49 sb4 07/09 09:25 Order name: CBC with Diff; Complete Time: 09:54 sb4 07/09 09:25 Order name: Hepatic Function; Complete Time: 10:49 sb4 07/09 09:25 Order name: Magnesium; Complete Time: 10:49 sb4 07/09 09:25 Order name: Test, Serum; Complete Time: 10: sb4 07/09 09:27 Order name: [place] Screen Profile; Complete Time: 10: sb4 07/09 10:13 Order name: Thyroid Stimulating Hormone; Complete Time: 10:49 EDMS 07/09 09:25 Order name: CT Head Brain wo Cont; Complete Time: 10: sb4 07/09 09:25 Order name: IV Saline Lock; Complete Time: 10:05 sb4 07/09 09:25 Order name: Labs collected and sent; Complete Time: 10: sb4 07/09 09:25 Order name: O2 Per Protocol; Complete Time: 10: sb4 07/09 09:25 Order name: O2 Sat Monitoring; Complete Time: 10: sb4 Administered Medications: 10:05 Drug: NS 0.9% IV 1000 ml IV at 1000 ml once; to be given as a bolus over 60 minutes db Route: IV; Rate: 1000 ml; Site: right antecubital; 11:27 Follow up: Response: No adverse reaction; IV Status: Completed infusion; IV Intake: db 1000ml 10:05 Drug: Ketorolac IVP 15 mg IVP once Route: IVP; Site: right antecubital; db 11:28 Follow up: Response: No adverse reaction db 10:05 Drug: metoCLOPramide IVP 10 mg IVP once; over 1 to 2 minutes Route: IVP; Site: right db antecubital; 11:27 Follow up: Response: No adverse reaction db 10:05 Drug: diphenhydrAMINE IVP 12.5 mg IVP once Route: IVP; Site: right antecubital; db 11:27 Follow up: Response: No adverse reaction db Disposition: 16:07 Co-signature as Attending Physician, Tony Olmdeo MD I reviewed the patient's care rn provided by the Advanced Practice Provider and agree with the diagnosis and treatment plan. Disposition Summary: 07/09/25 10:53 Discharge Ordered Notes: Location: Home sb4 Problem: an ongoing problem sb4 Symptoms: have improved sb4 Condition: Stable sb4 Diagnosis - Headache sb4 Followup: sb4 - With: Josse Espinoza MD - When: As needed - Reason: Further diagnostic work-up, Recheck today's complaints, Re-evaluation by your physician Discharge Instructions: - Discharge Summary Sheet sb4 - General Headache Without Cause sb4 - Migraine Headache, [id number] sb4 Forms: - Patient Portal Instructions sb4 - Leadership Thank You Letter sb4 Prescriptions: - Fioricet 50-300-40 mg Oral capsule - take 1 capsule ORAL route every 4 to 6 hours as needed for pain; 15 capsule; sb4 Refills: 0, Product Selection Permitted - Ibuprofen 800 mg Oral Tablet - take 1 tablet ORAL route every 8 hours As needed take with food; 30 tablet; sb4 Refills: 0, Product Selection Permitted Signatures: Dispatcher [employer] Tony Renteria MD MD rn Baxter, Heather RN RN Mayra Alcantara RN RN Padmini Rodríguez, PA-C PA-Nilson sb4 Corrections: (The following items were deleted from the chart) 10:12 10:12 LAB ADD ON+C.LAB.KATHERINZ ordered. IONAPR IONAPR
--- NOTE | 2025-07-09 10:54 | ER ---
Nurse's Notes [facility] Name: Edie Ca Age: 19 yrs Sex: Female : 2005 Arrival Date: 07/09/2025 Time: 09:13 Bed 20 Private MD: Diagnosis: Headache Presentation: 07/09 09:26 Chief complaint: Left sided headache with intermittent nausea and tingling in right hb hand x 1 month. Coronavirus screen: At this time, the client does not indicate any symptoms associated with coronavirus-19. Ebola Screen: No symptoms or risks identified at this time. Initial Sepsis Screen: Does the patient meet any 2 criteria? No. Patient's initial sepsis screen is negative. Does the patient have a suspected source of infection? No. Patient's initial sepsis screen is negative. Risk Assessment: Do you want to hurt yourself or someone else? Patient reports no desire to harm self or others. Onset of symptoms was May 2025. 09:26 Method Of Arrival: Ambulatory 09:26 Acuity: WADE 3 hb Triage Assessment: 09:29 Headache History: Denies prior headaches. General: Appears in no apparent distress. hb Behavior is calm, cooperative. Pain: Pain currently is 5 out of 10 on a pain scale. Pain began 1 month ago Also complains of nausea. Neuro: GCS 15. Cardiovascular: Patient's skin is warm and dry. Respiratory: Respiratory effort is even, unlabored, Respiratory pattern is regular, symmetrical. Historical: - Allergies: 09:27 No Known Allergies; hb - Home Meds: :27 escitalopram oxalate Oral [Active]; levothyroxine oral [Active]; hb - PMHx: :27 Anxiety; Hypothyroidism; hb - PSHx: :27 Wrist - Right; hb - Immunization history:: Adult Immunizations up to date. - Infectious Disease History:: Denies. - Social history:: Smoking status: Patient denies any tobacco usage or history of. Screenin:26 [facility] ED Fall Risk Assessment (Adult) History of falling in the last 3 months, db including since admission No falls in past 3 months (0 pts) Confusion or Disorientation No (0 pts) Intoxicated or Sedated No (0 pts) Impaired Gait No (0 pts) Mobility Assist Device Used No (0 pt) Altered Elimination No (0 pt) Score/Fall Risk Level 0 - 2 = Low Risk Oriented to surroundings, Maintained a safe environment. Abuse screen: Denies threats or abuse. Denies injuries from another. Nutritional screening: No deficits noted. Tuberculosis screening: No symptoms or risk factors identified. Assessment: 11:26 Reassessment: Patient appears in no apparent distress at this time. Patient and/or db family updated on plan of care and expected duration. Pain level reassessed. Patient is alert, oriented x 3, equal unlabored respirations, skin warm/dry/pink. General: Appears in no apparent distress. comfortable, Behavior is calm, cooperative. Pain: Complains of pain in head. Neuro: Level of Consciousness is awake, alert, obeys commands, Oriented to person, place, time, situation. Vital Signs: 09:26 BP 126 / 93; Pulse 75; Resp 16; Temp 99.2(O); Pulse Ox 99% on R/A; Weight 63.96 kg; hb Pain 5/10; 10:15 BP 111 / 87; Pulse 65; Resp 16; Pulse Ox 99% on R/A; db 11:00 BP 99 / 69; Pulse 67; Resp 16; Pulse Ox 100% ; db 09:26 Pain Scale: Adult hb [place] Coma Score: 09:30 Eye Response: spontaneous(4). Motor Response: obeys commands(6). Verbal Response: sb4 oriented(5). Total: 15. ED Course: 09:17 Patient arrived in ED. ts1 09:17 Padmini Edmond PA-C is PHCP. sb4 09:17 Tony Olmedo MD is Attending Physician. sb4 09:27 Triage completed. hb 09:29 Arm band placed on. hb 09:[address] via wheelchair. db 09:42 Initial lab(s) drawn, by ak, sent to lab. Inserted saline lock: 20 gauge in right db antecubital area, using aseptic technique. Blood collected. Flushed with 10 mL NS. 09:47 Mayra Mazariegos, DORA is Primary Nurse. db 09:52 CT Head Brain wo Cont In Process Unspecified. EDMS 10:47 Thyroid Stimulating Hormone Sent. sb4 10:53 Josse Espinoza MD is Referral Physician. sb4 11:26 Patient has correct armband on for positive identification. Bed in low position. Call db light in reach. Side rails up X 1. Provided Education on: DISCHARGE AND FOLLOWUP. Pulse ox on. NIBP on. Warm blanket given. Pillow given. 11:26 No provider procedures requiring assistance completed. IV discontinued, intact, db bleeding controlled, No redness/swelling at site. Administered Medications: 10:05 Drug: NS 0.9% IV 1000 ml IV at 1000 ml once; to be given as a bolus over 60 minutes db Route: IV; Rate: 1000 ml; Site: right antecubital; 11:27 Follow up: Response: No adverse reaction; IV Status: Completed infusion; IV Intake: db 1000ml 10:05 Drug: Ketorolac IVP 15 mg IVP once Route: IVP; Site: right antecubital; db 11:28 Follow up: Response: No adverse reaction db 10:05 Drug: metoCLOPramide IVP 10 mg IVP once; over 1 to 2 minutes Route: IVP; Site: right db antecubital; 11:27 Follow up: Response: No adverse reaction db 10:05 Drug: diphenhydrAMINE IVP 12.5 mg IVP once Route: IVP; Site: right antecubital; db 11:27 Follow up: Response: No adverse reaction db Medication: 11:26 VIS not applicable for this client. db Intake: 11:27 IV: 1000ml; Total: 1000ml. db Outcome: 10:53 Discharge ordered by MD. burks 11:26 Discharged to home ambulatory, with family, db 11: Condition: stable 11:26 Discharge instructions given to patient, family, Instructed on discharge instructions, follow up and referral plans. Prescriptions given X 2, 11:28 Patient left the ED. db Signatures: Dispatcher [employer] EDHumera Reinoso, RN RN Mayra Mazariegos RN RN Padmini Rodríguez, PA-C PAJean CarlosC sb4 Tiffanie Gustafson PAS PAS ts1
[2025-07-09 11:37] VITALS: TEMP 99.2
[2025-07-09 11:40] VITALS: BP 99/69; O2SAT 100
== END 2025-07-09 11:28 | disposition home or self-care (01) ==
LOC: ER 09:13
DX: R51.9 Headache, unspecified (principal)
CPT/HCPCS: 96361; 85025; 80048; 36415; 83735; 86308; 84703; 80076; 84443; 70450; 96375; 96374; 99285; J2765; J1200; J7030